=== PATIENT | female | born 1990 | race Caucasian/White ===

== ENCOUNTER 2019-01-25 12:50 | Outpatient (REF) | payer MEDICAID, SELFPAY ==
[2019-01-27 11:19] LABS: HIV-1/2 Ag & Ab Screen Negative (NEGAT)
[2019-01-27 11:25] LABS: Syphilis Serology (RPR) Negative (Negative)
[2019-01-27 15:22] LABS: Chlamydia Result Negative; GC Result Negative; Specimen Description CERVIX
== END 2019-01-25 13:10 ==
LOC: NCHCN 12:50
PROVIDERS: PCP Nurse Practitioner Family; Visit Provider Registered Nurse
DX: Z11.3 Encounter for screening for infections with a predominantly sexual mode of transmission (principal); Z11.4 Encounter for screening for human immunodeficiency virus [HIV]
CPT/HCPCS: 87389; 87491; 87591; 86592

== ENCOUNTER 2019-04-17 17:34 | Emergency (ER) | payer MEDICAID, SELFPAY ==
[2019-04-17 17:37] VITALS: BP 119/77; PULSE 72; RESP 16; TEMP 36.7; O2SAT 98
--- NOTE | 2019-04-17 17:50 | ED.GENADUL_ITS ---
Discharge Plan Disposition Patient Disposition: HOME Condition: Improving Discharge Details Chief Complaint: EarProblem Clinical Impression: Otitis media, Otitis externa Primary Care Provider: Kaleigh Jamil ED Provider: Yusuf Villeda Home Meds and New Rx's Prescriptions: New amoxicillin-pot clavulanate 875-125 mg tablet 1 tab PO BID 10 Days Qty: 20 RF: 0 Cortisporin-TC 3.3-3-10-0.5 mg/mL drops,suspension 4 drp OT TID Qty: 10 RF: 0 Continued Sinus Congestion and Pain 5-325 mg Tablet PO RF: 0 Discharge Instructions Instructions: Otitis Externa (ED), Otitis Media (ED) Additional Instructions: May use Tylenol and/or ibuprofen as needed for pain. I recommend you take once daily rzuh-gbt-lpoxnmq probiotic or live culture yogurt while taking antibiotics. Please follow-up with [facility] if not improving in 3 to 5 days time. Return to the emergency department for any acute concerns. Medical Decision Making 29-year-old female presents with day 2 of left greater than right ear pain with some drainage this morning. The right ear is fairly unremarkable. Left manic membrane is distended and erythematous and there is cobblestoning and mucopurulent debris present in the left ear canal. Does seem that she has both a acute otitis media as well as otitis externa. She does not tolerate ciprofloxacin and therefore will order Cortisporin otic as well as a course of Augmentin. She may follow-[facility] with [facility] for recheck. She is stable for discharge at this time. HPI General Mode of arrival: ambulatory . Date/Time Provider Initiated Documentation: 04/17/19 17:39 . Limitations to Documentation: no limitations . Information obtained by: patient . History of Present Illness 29 year old F presents to the emergency department with the chief complaint of Left greater than right ear pain, described as moderate, Quality is described as constant, and is localized to the head and left. Patient reports no radiation. Patient started experiencing this day(s) and it has been c onstant. No relieving factors improve symptom(s), No exacerbating factors reported . Patient notes denies cough. Patient did receive the following treatments prior to arrival, none Related Data Home Medications Medication Instructions Recorded Confirmed Sinus Congestion and Pain tab PO 04/17/19 amoxicillin-pot clavulanate 1 tab PO BID 10 Days #20 tab 04/17/19 ygxupgle-fnvzka-VA-thonzonium 4 drp OT TID #10 ml 04/17/19 [Cortisporin-TC] Previous Rx's Medication Instructions Recorded amoxicillin-pot clavulanate 1 tab PO BID 10 Days #20 tab 04/17/19 eqreayuv-ztqsmq-BW-thonzonium 4 drp OT TID #10 ml 04/17/19 [Cortisporin-TC] Allergies Allergy/AdvReac Type Severity Reaction Status Date / Time ciprofloxacin [From Cipro] AdvReac Intermediate liver Unverified 04/17/19 17:41 problems/jaundice General Stated Complaint: EarProblem HEATH: 4 Review of Systems Narrative: 6 systems reviewed and otherwise negative [facility] Medical History Chronic urinary tract infection Vesicoureteric reflux Surgical History (Updated 02/26/19 @ 09:17 by Cat Jung LPN) Ureteroneocystostomy Social History Smoking/Tobacco Use Status: Never Drug use: Never Exam Narrative Exam Narrative: GEN: awake, alert, oriented 3. Pleasant, well groomed, interactive. HEAD: Normocephalic, atraumatic ENT: Mucous membranes moist, oropharynx unremarkable, right tympanic membrane fluid filled but nondistended. Left tympanic membrane is erythematous and distended. There is cobblestoning and mucopurulent debris in the left external ear canal. Right external ear exam unremarkable EYES: PERRL, EOMI NECK: Full ROM, no ANNEL, no menigismus EXT: Full ROM, no edema, no rash Neuro: Grossly normal neurologic exam, conversant, interactive. Psych: Speech fluent, thoughts congruent, affect normal Course Vital Signs Vital signs: Vital Signs Temperature 36.7 C 04/17/19 17:37 Pulse 72 04/17/19 17:37 Respiratory Rate 16 04/17/19 17:37 Blood Pressure 119/77 04/17/19 17:37 Pulse Oximetry 98 04/17/19 17:37 Temperature 36.7 C 04/17/19 17:37 Temperature Source Temporal Artery Scan 04/17/19 17:37 Pulse 72 04/17/19 17:37 Respiratory Rate 16 04/17/19 17:37 Respiratory Effort 04/17/19 17:42 Blood Pressure 119/77 04/17/19 17:37 Blood Pressure Position Sitting 04/17/19 17:37 Pulse Oximetry 98 04/17/19 17:37 Oxygen Delivery Method Room Air 04/17/19 17:37 Oxygen Flow Rate 0 04/17/19 17:37 Pain Level 4 04/17/19 17:43
[2019-04-17] MEDS: Cortisporin OTIC SUSP 10 ML BTL AS (17:53)
[2019-04-17] MEDS: Amoxicillin 875/Clav. 125 TAB PO (17:53)
== END 2019-04-17 18:10 | disposition home or self-care (01) ==
PROVIDERS: Emergency Provider Emergency Medicine; PCP Nurse Practitioner Family
DX: H60.91 Unspecified otitis externa, right ear (principal); H66.91 Otitis media, unspecified, right ear
CPT/HCPCS: 99283

== ENCOUNTER 2019-05-20 22:00 | Outpatient (REF) | payer MEDICAID, SELFPAY | END 2019-05-20 22:20 | LOC: NCHCN 22:00 | PROVIDERS: PCP Nurse Practitioner Family; Visit Provider Family Medicine | DX: R30.9 Painful micturition, unspecified (principal) | CPT/HCPCS: 87077; 87086; 87186 ==

== ENCOUNTER 2020-02-26 23:20 | Emergency (ER) | payer MEDICAID, SELFPAY ==
[2020-02-26 23:28] VITALS: BP 118/71; PULSE 91; RESP 20; TEMP 36.6; O2SAT 96
--- NOTE | 2020-02-26 23:50 | ED.GENADUL_ITS ---
Discharge Plan Disposition Patient Disposition: HOME Condition: Stable Discharge Details Clinical Impression: UTI (urinary tract infection), Nausea & vomiting Primary Care Provider: Kaleigh Jamil ED Provider: Eliseo Miner Home Meds and New Rx's Prescriptions: New ondansetron HCl [Zofran] 4 mg tablet 4 mg PO Q8H PRNQty: 10 RF: 0 sulfamethoxazole-trimethoprim [Bactrim DS] 800-160 mg tablet 1 tab PO BID Qty: 14 RF: 0 Discharge Instructions Instructions: Acute Nausea and Vomiting (ED), Urinary Tract Infection in Women (ED) Additional Instructions: Zofran and Bactrim as directed. Plenty of fluids to avoid dehydration. Atga-pch-uwnufve Tylenol and/or Motrin for symptomatic control. Please watch for new or worsening symptoms and return to the ER for any concerns. Please contact her primary care provider on Friday for prompt outpatient reevaluation. Medical Decision Making 30-year-old female with urinary reflux, chronic UTIs. She presents believing that she has a urinary tract infection. Reports frequency, nausea and vomiting. She denies any fever, or abdominal pain. She appears well, nontoxic. She does report some mild aching back pain but she has no CVA tenderness, no back discomfort to palpation, no clinical signs of pyelonephritis. Heart rate in the 80s, blood pressure 118/71. She is afebrile. POC negative Options at this time. She would prefer to avoid any IV if at all possible. We discussed IV Zofran, normal saline, CBC and CMP. She would prefer obtaining a urinalysis and trialing Zofran ODT. If she has a urinary tract infection and can tolerate oral intake she prefer to be discharged without a larger work-up. She appears well, nontoxic and I believe this to be a reasonable plan. Zofran given Urinalysis is positive for nitrates, moderate bacteria. 0-2 white cells and rare epithelial cells. Culture pending. Discussed results with patient. In a female who reports this is similar presentation to her previous urinary tract infections, urinalysis positive nitrates and moderate bacteria I believe treating for urinary tract infection is reasonable. Again we discussed establishing IV, IV hydration and laboratory values. Patient declines and would prefer to trial oral antibiotics and be discharged. Patient given first dose of Bactrim. She will be given a take-home pack of Zofran and I will provide a prescription for Bactrim and Zofran. Patient with no additional questions or concerns and is comfortable discharge. Medical Records Medical records reviewed: Yes I reviewed the patient's medical records. Lab Data Lab results reviewed: Yes I reviewed the patient's lab results. Lab results narrative: 02/26/20 23:40 Urine - Reflex from Ua Urine Culture - Pending Laboratory Tests Range/Units 02/26/20 23:40 Urine Color (Yellow) Yellow Urine Clarity (Clear) Clear Urine pH (5-8) 7.0 Ur Specific Barton (1.005-1.025) 1.025 Urine Protein (Negative) mg/dL Negative Urine Ketones (Negative) mg/dL Negative Urine Blood (Negative) Negative Urine Nitrite (Negative) Positive H Urine Bilirubin (Negative) Negative Urine Urobilinogen (Up TO 0.2) EU/dL 0.2 Ur Leukocyte Esterase (Negative) Negative Urine RBC (0-2) HPF Negative Urine WBC (0-5) HPF 0-2 Ur Epithelial Cells (Negative) HPF Rare Urine Crystals (Negative) HPF Negative Urine Bacteria (Negative) HPF Moderate Urine Casts (Negative) LPF Negative Urine Mucus (Negative) Negative Ur Culture Indicated? Yes Urine Glucose (Negative) mg/dL Negative HPI General Mode of arrival: ambulatory . Date/Time Provider Initiated Documentation: 02/26/20 23:32 . Limitations to Documentation: no limitations . Information obtained by: patient . HPI Narrative: This is a 30-year-old female with history of vesicoureteric reflux and recurrent urinary tract infections. She reports that this feels very similar to previous urinary tract infections. She began with nausea and vomiting today around lunch and increased urination. She denies fever, abdominal pain, dysuria, hematuria, vaginal bleeding or discharge. She reports that her back feels a little achy but no severe pain, this is usual with her urinary tract infections. She has Zofran at home that she would to take but unfortunately she is camping and did not have that prescription. She denies any sick contact, bad food exposure or recent travel. Related Data Home Medications Medication Instructions Recorded Confirmed ondansetron HCl [Zofran] 4 mg PO Q8H PRN #10 tab 02/27/20 sulfamethoxazole-trimethoprim 1 tab PO BID #14 tab 02/27/20 [Bactrim DS] Previous Rx's Medication Instructions Recorded ondansetron HCl [Zofran] 4 mg PO Q8H PRN #10 tab 02/27/20 sulfamethoxazole-trimethoprim 1 tab PO BID #14 tab 02/27/20 [Bactrim DS] Allergies Allergy/AdvReac Type Severity Reaction Status Date / Time ciprofloxacin [From Cipro] AdvReac Intermediate liver Unverified 02/26/20 23:38 problems/jaundice General Stated Complaint: Nausea/Vomit/Diar HEATH: 3 Review of Systems Constitutional Constitutional: Denies fever(s) Cardiovascular Cardiovascular: Denies chest pain and Denies dyspnea Respiratory Respiratory: Denies cough and Denies dyspnea Gastrointestinal Gastrointestinal: Denies abdominal pain, Denies diarrhea, Reports nausea and Reports vomiting Genitourinary Genitourinary: Denies hematuria, Denies dysuria, Denies pelvic pain and Reports urinary urgency Musculoskeletal Musculoskeletal: Reports back pain Integumentary/Breasts Skin/Breast: Denies rash [facility] Medical History (Updated 02/27/20 @ 00:16 by ED Gilman) Chronic urinary tract infection Vesicoureteric reflux Surgical History Ureteroneocystostomy Social History Smoking/Tobacco Use Status: Never Alcohol Intake: former Drug use: Never Substance use type: does not use Do you feel safe at home: Yes Do you feel safe in your relationship?: Yes Exam Const General: cooperative, healthy appearing, comfortable and no acute distress Orientation: alert and awake [facility] Head: normal to inspection, normocephalic and atraumatic Mouth: moist mucous membranes Eyes Conjunctivae: conjunctivae normal Sclera: sclerae normal Neck Neck: normal visual inspection, full ROM, trachea midline and supple Resp Effort & Inspection: normal respiratory effort and able to speak in complete sentences Auscultation: clear to auscultation bilaterally Cardio Rate: regular rate Rhythm: regular rhythm GI Inspection: normal to inspection Palpation: soft, not firm, no guarding, not rigid and nontender Auscultation: normal bowel sounds Back/Spine/Pelvis Back: no CVA tenderness and No back tenderness Skin General skin exam: no rashes or lesions noted Neuro General: patient alert, patient awake, moves all extremities and no focal motor deficits Sensory Exam: no sensory deficits noted Psych Appearance: grossly normal Mental Status: mental status grossly normal Course Vital Signs Vital signs: Vital Signs Temperature 36.6 C 02/26/20 23:28 Pulse 91 H 02/26/20 23:28 Respiratory Rate 02/26/20 23:28 Blood Pressure 118/71 02/26/20 23:28 Pulse Oximetry 96 02/26/20 23:28 Temperature 36.6 C 02/26/20 23:28 Temperature Source Temporal Artery Scan 02/26/20 23:28 Pulse 91 H 02/26/20 23:28 Respiratory Rate 02/26/20 23:28 Respiratory Effort Non-Labored 02/26/20 23:36 Blood Pressure 118/71 02/26/20 23:28 Blood Pressure Position Sitting 02/26/20 23:28 Pulse Oximetry 96 02/26/20 23:28 Oxygen Delivery Method Room Air 02/26/20 23:28 Oxygen Flow Rate 0 02/26/20 23:28 Lab/Test Results Lab/Test Results: POC- Test(urine) Negative
[2020-02-26 23:51] LABS: Bilirubin Negative (Negative); Blood Negative (Negative); Clarity Clear (Clear); Glucose Negative (Negative); Ketones Negative (Negative); Leukocyte Esterase Negative (Negative); Nitrite Positive (Negative); Specific Gravity 1.025 (1.005-1.025); Urobilinogen 0.2 EU/dL (Up TO 0.2)
[2020-02-26 23:56] LABS: Bacteria Moderate HPF (Negative); C & S Indicated? Yes; Casts Negative LPF (Negative); Crystals Negative HPF (Negative); Epithelial Cells Rare HPF (Negative); Mucus Negative (Negative); RBC Negative HPF (0-2); WBC 0-2 HPF (0-5)
[2020-02-26] MEDS: Ondansetron O.D.T. 4 MG TABEF PO (23:59)
[2020-02-27] MEDS: Sulfameth/Trimeth DS TAB 1 TAB PO (00:25)
[2020-02-27] MEDS: Ondansetron O.D.T. 4 MG TABEF, 3 TABS/BTL PO (00:25)
== END 2020-02-27 00:30 | disposition home or self-care (01) ==
PROVIDERS: Emergency Provider Physician Assistant; PCP Nurse Practitioner Family
DX: N39.0 Urinary tract infection, site not specified (principal); B96.20 Unspecified Escherichia coli [E. coli] as the cause of diseases classified elsewhere; R11.2 Nausea with vomiting, unspecified; Z87.440 Personal history of urinary (tract) infections
CPT/HCPCS: 81025; 87077; 99283; 81003; 81015; 87086; 87186

== ENCOUNTER 2020-03-10 09:33 | Outpatient (REF) | payer MEDICAID, SELFPAY | END 2020-03-10 09:53 | LOC: NCHCN 09:33 | PROVIDERS: PCP Nurse Practitioner Family; Visit Provider Registered Nurse | DX: N39.0 Urinary tract infection, site not specified (principal); N10 Acute pyelonephritis; R30.9 Painful micturition, unspecified | CPT/HCPCS: 87086 ==

== ENCOUNTER 2020-03-22 17:02 | Outpatient (REF) | payer MEDICAID, SELFPAY ==
--- NOTE | 2020-03-22 16:00 | PAPFT_PTH ---
PATIENT: Ashley Soni LOC: [facility] U#:[id number] AGE/SX: 30/F ROOM: RE03/22/[address]: Conor Finney MD : 1990 BED: DIS: 03/22/2020 SPEC #: [id number] RECD: 03/22/20 18:01 STATUS: ROBERT REQ #: [id number] GUANAKITO: 03/22/20 16:[address]: Conor Finney DEPT: [facility] Cytology RECD BY: Vernell Chinchilla ENTERED: 03/22/20 18:02 SP TYPE: PAPFT OTHR DR: Kaleigh Jamil Tissues: 1 - CX/ENDOCX FOR PAP SMEARS Procedures: PAP THIN PREP/[facility] Screening HPV DNA PROBE Comments: [id number]
== END 2020-03-22 17:22 ==
LOC: LBN 17:02
PROVIDERS: PCP Nurse Practitioner Family; Visit Provider Obstetrics & Gynecology
DX: Z12.4 Encounter for screening for malignant neoplasm of cervix (principal); Z11.51 Encounter for screening for human papillomavirus (HPV)
CPT/HCPCS: 88142; 87624

== ENCOUNTER 2020-04-05 00:48 | Outpatient (CLI) | payer MEDICAID, SELFPAY ==
--- NOTE | 2020-04-05 08:30 | DI.US_ITS ---
EXAM: US PELVIS TRANSVAGINAL CLINICAL HISTORY: Dyspareunia. Dysmenorrhea, PELVIC PAIN, N94.12, R10.2 TECHNIQUE: Transabdominal and transvaginal imaging was performed using standard protocol. COMPARISON: US PELVIS TRANSVAG from 08/19/2012 FINDINGS: KIDNEYS: Kidneys are symmetric in size. No evidence of renal calculi. No evidence of hydronephrosis. No renal mass or cyst identified. UTERUS: Anteverted. 11.1 x 4.1 x 7.2 cm. Endometrium: 10 millimeters. Calcification at the endometrial myometrial junction. Myometrium: Unremarkable. No fibroids. Cervix: Unremarkable. OVARIES: Right: Cyst or mass: None. Small amount of fluid adjacent to the right ovary. Left: Cyst or mass: None. 1.8 centimeter dominant follicle. DOPPLER: Color: Symmetric and uniform flow to both ovaries. No hyperemia. Duplex: Normal ovarian arterial waveforms visualized. Mildly prominent veins in the right adnexal region. CUL-DE-SAC: Free fluid: None. IMPRESSION: 1. Mildly prominent right gonadal veins. Question pelvic congestion syndrome.. 2. Unremarkable bilateral ovaries. DATA REPOSITORY:
== END 2020-04-05 01:08 ==
PROVIDERS: PCP Nurse Practitioner Family; Visit Provider Obstetrics & Gynecology
DX: R10.2 Pelvic and perineal pain (principal); N94.12 Deep dyspareunia
CPT/HCPCS: 76830; 76856

== ENCOUNTER 2020-05-16 21:52 | Outpatient (REF) | payer MEDICAID, SELFPAY ==
[2020-05-19 13:33] LABS: COVID-19 RT-PCR Result NEGATIVE (Negative)
== END 2020-05-16 22:12 ==
LOC: NCHCN 21:52
PROVIDERS: PCP Nurse Practitioner Family; Visit Provider Registered Nurse
DX: J06.9 Acute upper respiratory infection, unspecified (principal); Z20.828 Contact with and (suspected) exposure to other viral communicable diseases
CPT/HCPCS: U0003

== ENCOUNTER 2021-12-24 15:24 | Outpatient (REF) | payer MEDICAID, SELFPAY ==
--- OUTSIDE RECORDS SUMMARY | 2021-12-24 15:27 | XMS_ITS | Encounter Summary ---
:1990 Author Organization [facility] Address [address] [place] [address] Care Team Providers Name Role Phone Steve Huff MD Primary Care Provider Reason for Visit Reason Onset Date Comments Appointment Related 03/29/2019 Encounter Details Date Type Department Care Team Description 03/29/2019 Telephone [facility] Ashleigh Almeida Ap pointment Related hvac manager - [id number] [place] [id number] Social History Tobacco Use Types Packs/Day Years Used Date Never Assessed Sex Assigned at Date Recorded Not on file documented as of this encounter Miscellaneous Notes Telephone Encounter - Ashleigh Almeida RN - 04/02/2019 1414 EDT left advising pt of 04/08/19 ramirez Gupta 0830 arrival in pt reg 0900 radiology appt May take all meds as usual. documented in this encounter Plan of Treatment Not on filedocumented as of this encounter Visit Diagnoses Not on filedocumented in this encounter Care Teams Banquet Chef Relationship Specialty Start Date End Date Steve Huff MD PCP - General 11/08/11 [place] [id number] documented as of this encounter
--- OUTSIDE RECORDS SUMMARY | 2021-12-24 15:27 | XMS_ITS | Encounter Summary ---
:1990 Author Organization [facility] Address [address] [place] [address] Care Team Providers Name Role Phone Steve Huff MD Primary Care Provider Encounter Details Date Type Department Care Team Description 04/08/2019 Results Only [facility] PRISM MD [phone] [address] [place] [address] (Wo rk) Social History Tobacco Use Types Packs/Day Years Used Date Never Assessed Sex Assigned at Date Recorded Not on file documented as of this encounter Plan of Treatment Not on filedocumented as of this encounter Procedures Procedure Name Priority Date/Time Associated Diagnosis Comme nts MR EXTREMITY 04/08/2019 10:11 Results for this SHOULDER W CONTRAST EDT procedur e are in the results section. [place] GUIDE LOCATION, 04/08/2019 9:35 EDT Re sults for this ASPIRATION, procedure are i n INJECTION, BIOPSY the result s section. documented in this encounter Results MR EXTREMITY SHOULDER W CONTRAST (04/08/2019 10:11 EDT) Anatomical Region Laterality Modality Other Specimen Narrative [facility] - 04/08/2019 10:20 EDT MR EXTREMITY LEFT SHOULDER W CONTRAST ??04/08/2019 10:11 AM Clinical History/Comments: Patient has had ongoing left shoulder pa in for the last 5 years. The shoulder pain has been progressing and s ometimes is unable to move her arm, has tried injections and they w ere unsuccessful and caused burning and pain, she also has tingling into the finger. COMPARISON: None available TECHNIQUE: Routine MRI of the left shoul cara utilizing a 12 cm imaging [id number] following injectio n of a dilute gadolinium solution into the glenohumeral joint spa ce. FINDINGS Successful intra-articular injection of contrast into the glenohumeral joint space. No abnormal pa ssage of contrast into the subacromial, subdeltoid bursal space to indicate a full-thickness rotator cuff tendon tear. Rotator Cuff: Supraspinatus: The supraspinatus tendon shows mild to moderate tendinosis without discrete tear. No mus tammie atrophy or fatty infiltration demonstrated. Infraspinatus: The infraspinatus tendon shows mild to moderate tendinosis without discrete tear. No mus tammie atrophy or fatty infiltration demonstrated. Teres Minor: The teres minor tendon is i ntact. No muscle atrophy or fatty infiltration demonstrated. Subscapularis: The subscapularis tendon shows mild to moderate tendinosis without discrete tear. No mus tammie atrophy or fatty infiltration demonstrated. Long head biceps tendon: The long head b iceps tendon is intact and appears normally positioned within the b icipital groove. Labrum: No glenoid labral tear identifie d. Cartilage: No significant glenohumeral j oint degenerative changes visualized. Bones: No Hill-Sachs impaction fracture seen on the posterolateral aspect of the superior humeral head. No osseous Bankart fracture seen along the anteroinferior glenoid ri m. There is altered bone marrow signal invo lving the visualized scapula, proximal humeral diametaphysis and subcortical region in the humeral head, which show mildly incr eased T2 signal change as well as a mildly decreased T1 marrow sig nal change. The decreased T1 marrow signal change appears brighter th en normal muscle suggesting that the findings in the proper context can represent an exaggerated hematopoietic bone marrow pattern. Howev er, this will need to be correlated clinically. Joint Space: Successful intra-articular injection of contrast into the glenohumeral joint space. Acromioclavicular Joint: ??There is mode rate acromioclavicular joint osteoarthrosis, with mild edematous thic kening of the AC joint capsule as well as reactive edema-like b one marrow signal changes extending from the subchondral region on both sides of the AC joint though particularly involving the distal end of the clavicle. Subacromial-Subdeltoid Bursa: Minimal fi ndings of subacromial, subdeltoid bursitis. IMPRESSION: Left shoulder MRI 1. No glenoid labral tear or significant glenohumeral joint degenerative changes visualized. 2. No osseous Bankart or Hill-Sachs frac ture identified. 3. The supraspinatus, infraspinatus and subscapularis tendons show mild to moderate tendinosis with no disc rete rotator cuff tendon tear visualized. 4. Moderate acromioclavicular joint oste oarthrosis. The acromioclavicular joint may be a pain ge nerator given associated mild edematous thickening of the AC join t capsule as well as reactive edema-like bone marrow signal c hanges extending from the subchondral region, particularly at the distal end of the clavicle.. 5. Minimal findings of subacromial, subd eltoid bursitis. 6. Altered bone marrow signal changes, w hich in the proper context can represent an exaggerated hematopoiet ic bone marrow pattern. This is most often seen in patients who are s mokers or patients with other etiologies resulting in an increas ed demand for hematopoiesis, including patients with anemia. Please c orrelate clinically and with a complete blood count and differential. 7. Additional findings as above. Procedure Note Steve Castro MD - 04/08/2019 MR EXTREMITY LEFT SHOULDER W CONTRAST 10:11 AM Clinical History/Comments: Patient has had ongoing left shoulder pa in for the last 5 years. The shoulder pain has been progressing and eden pritchett is unable to move her arm, has tried injections and they w ere unsuccessful and caused burning and pain, she also has tingling into the finger. COMPARISON: None available TECHNIQUE: Routine MRI of the left shoul cara utilizing a 12 cm imaging [id number] following injectio n of a dilute gadolinium solution into the glenohumeral joint spa ce. FINDINGS Successful intra-articular injection of contrast into the glenohumeral joint space. No abnormal pa ssage of contrast into the subacromial, subdeltoid bursal space to indicate a full-thickness rotator cuff tendon tear. Rotator Cuff: Supraspinatus: The supraspinatus tendon shows mild to moderate tendinosis without discrete tear. No mus tammie atrophy or fatty infiltration demonstrated. Infraspinatus: The infraspinatus tendon shows mild to moderate tendinosis without discrete tear. No mus tammie atrophy or fatty infiltration demonstrated. Teres Minor: The teres minor tendon is i ntact. No muscle atrophy or fatty infiltration demonstrated. Subscapularis: The subscapularis tendon shows mild to moderate tendinosis without discrete tear. No mus tammie atrophy or fatty infiltration demonstrated. Long head biceps tendon: The long head b iceps tendon is intact and appears normally positioned within the b icipital groove. Labrum: No glenoid labral tear identifie d. Cartilage: No significant glenohumeral j oint degenerative changes visualized. Bones: No Hill-Sachs impaction fracture seen on the posterolateral aspect of the superior humeral head. No osseous Bankart fracture seen along the anteroinferior glenoid ri m. There is altered bone marrow signal invo lving the visualized scapula, proximal humeral diametaphysis and subcortical region in the humeral head, which show mildly incr eased T2 signal change as well as a mildly decreased T1 marrow sig nal change. The decreased T1 marrow signal change appears brighter th en normal muscle suggesting that the findings in the proper context can represent an exaggerated hematopoietic bone marrow pattern. Howev er, this will need to be correlated clinically. Joint Space: Successful intra-articular injection of contrast into the glenohumeral joint space. Acromioclavicular Joint: There is modera te acromioclavicular joint osteoarthrosis, with mild edematous thic kening of the AC joint capsule as well as reactive edema-like b one marrow signal changes extending from the subchondral region on both sides of the AC joint though particularly involving the distal end of the clavicle. Subacromial-Subdeltoid Bursa: Minimal fi ndings of subacromial, subdeltoid bursitis. IMPRESSION: Left shoulder MRI 1. No glenoid labral tear or significant glenohumeral joint degenerative changes visualized. 2. No osseous Bankart or Hill-Sachs frac ture identified. 3. The supraspinatus, infraspinatus and subscapularis tendons show mild to moderate tendinosis with no disc rete rotator cuff tendon tear visualized. 4. Moderate acromioclavicular joint oste oarthrosis. The acromioclavicular joint may be a pain ge nerator given associated mild edematous thickening of the AC join t capsule as well as reactive edema-like bone marrow signal c hanges extending from the subchondral region, particularly at the distal end of the clavicle.. 5. Minimal findings of subacromial, subd eltoid bursitis. 6. Altered bone marrow signal changes, w hich in the proper context can represent an exaggerated hematopoiet ic bone marrow pattern. This is most often seen in patients who are s mokers or patients with other etiologies resulting in an increas ed demand for hematopoiesis, including patients with anemia. Please c orrelate clinically and with a complete blood count and differential. 7. Additional findings as above. Performing Organization Address City/State/ZIP Code Phon e Number [facility] GUIDE LOCATION, ASPIRATION, INJECTION, BIOPSY (04/08/2019 9:35 EDT) Anatomical Region Laterality Modality Other Specimen Narrative [facility] - 04/08/2019 9:52 EDT [place] GUIDE LOCATION, ASPIRATION, INJECTION, BIOPSY ??04/08/2019 9:35 AM Clinical History/Comments: Patient has had ongoing left shoulder pa in for the last 5 years. The shoulder pain has been progressing and eden pritchett is unable to move her arm, has tried injections and they w ere unsuccessful and caused burning and pain, she also has tingling into the finger. Procedure: Left shoulder arthrogram under fluorosco pic guidance. Technique: The patient was met in the fluoroscopic suite where after proper identification; the risks, benefits, and alternatives to the procedure were explained in detail to e patient who gave informed oral and written consent to proceed. The patient was subsequently placed in s upine position. A limited examination was performed and the approp riate site of entry on the left shoulder marked. The left shoulder was prepped and draped in the usual sterile fashion. A 1% lidocain e solution was infiltrated at the access site. Subsequently, under fluoroscopic guidanc e, using strict sterile technique, a 22-gauge spinal needle was advanced into the left glenohumeral joint, and fluoroscopic con firmation was obtained by injecting approximately 2 cc of sterile Omnipaque 300 solution within the joint space. Following this, approx. 10 mL of a steri le mix of 1:400 gadolinium mixed with epinephrine, 1% lidocaine, Om nipaque 300, and normal saline solution was injected into the le ft glenohumeral joint space. The needle was removed and the shoulder was passively mobilized. Fluoro spot views were saved during the procedure. The patient tolerated the procedure well . There were no immediate complications. The patient was escorted to the MRI suit e for followup shoulder MRI. Impression: 1. Successful fluoroscopically guided le ft shoulder arthrogram without complications. MR arthrogram to follow. Dr. Castro was present during the injectio n for the arthrogram. Procedure Note Steve Castro MD - 04/08/2019 FL GUIDE LOCATION, ASPIRATION, INJECTION , BIOPSY 04/08/2019 9:35 AM Clinical History/Comments: Patient has had ongoing left shoulder pa in for the last 5 years. The shoulder pain has been progressing and eden pritchett is unable to move her arm, has tried injections and they w ere unsuccessful and caused burning and pain, she also has tingling into the finger. Procedure: Left shoulder arthrogram under fluorosco pic guidance. Technique: The patient was met in the fluoroscopic suite where after proper identification; the risks, benefits, and alternatives to the procedure were explained in detail to [facility] patient who gave informed oral and written consent to proceed. The patient was subsequently placed in s upine position. A limited examination was performed and the approp riate site of entry on the left shoulder marked. The left shoulder was prepped and draped in the usual sterile fashion. A 1% lidocain e solution was infiltrated at the access site. Subsequently, under fluoroscopic guidanc e, using strict sterile technique, a 22-gauge spinal needle was advanced into the left glenohumeral joint, and fluoroscopic con firmation was obtained by injecting approximately 2 cc of sterile Omnipaque 300 solution within the joint space. Following this, approx. 10 mL of a steri le mix of 1:400 gadolinium mixed with epinephrine, 1% lidocaine, Om nipaque 300, and normal saline solution was injected into the le ft glenohumeral joint space. The needle was removed and the shoulder was passively mobilized. Fluoro spot views were saved during the procedure. The patient tolerated the procedure well . There were no immediate complications. The patient was escorted to the MRI suit e for followup shoulder MRI. Impression: 1. Successful fluoroscopically guided le ft shoulder arthrogram without complications. MR arthrogram to follow. Dr. Castro was present during the injectio n for the arthrogram. Performing Organization Address City/State/ZIP Code Phon e Number [facility] documented in this encounter Visit Diagnoses Not on filedocumented in this encounter Care Teams Farm Management Teacher Relationship Specialty Start Date End Date Steve Huff MD PCP - General 11/08/11 [address] [place] [address] documented as of this encounter
--- OUTSIDE RECORDS SUMMARY | 2021-12-24 15:27 | XMS_ITS | Encounter Summary ---
:1990 Author Organization [facility] Address [address] [place] [address] Care Team Providers Name Role Phone Steve Huff MD Primary Care Provider Encounter Details Date Type Department Care Team Description 04/08/2019 Hospital Encounter [facility] - Usha Ramírez Tilley MD [facility] Masha Gupta [address] [place] [id number] [place] [id number] (Wo rk) Social History Tobacco Use Types Packs/Day Years Used Date Never Assessed Sex Assigned at Date Recorded Not on file documented as of this encounter Discharge Diagnoses Diagnosis M25.512 Pain in left shoulder-M25.512[IC D-10-CM] M75.82 Other shoulder lesions, left shou lder-M75.82[ICD-10-CM] M19.012 Primary osteoarthritis, left anne-marie ulder-M19.012[ICD-10-CM] documented in this encounter Discharge Disposition Disposition Code Departure Means Destination Auto Discharge Home documented in this encounter Plan of Treatment Not on filedocumented as of this encounter Visit Diagnoses Not on filedocumented in this encounter Care Teams Strategy Execution Consultant Relationship Specialty Start Date End Date Steve Huff MD PCP - General 11/08/11 [place] [id number] documented as of this encounter
--- OUTSIDE RECORDS SUMMARY | 2021-12-24 15:27 | XMS_ITS | Clinical Summary ---
:1990 Author Organization [facility] Address [address] [place] [address] Care Team Providers Name Role Phone Steve Huff MD Primary Care Provider Social History Tobacco Use Types Packs/Day Years Used Date Never Assessed Sex Assigned at Date Recorded Not on file Plan of Treatment Not on file Care Teams Pre K Teacher Relationship Specialty Start Date End Date Steve Huff MD PCP - General 11/08/11 [place] [phone]
--- OUTSIDE RECORDS SUMMARY | 2021-12-24 15:27 | XMS_ITS | Encounter Summary ---
:1990 Author Organization [facility] Address [address] [place] [address] Care Team Providers Name Role Phone Steve Huff MD Primary Care Provider Encounter Details Date Type Department Care Team Description 11/07/2011 Results Only [facility]- PRISM Carlo Gallegos MD [phone] [place] [address] Social History Tobacco Use Types Packs/Day Years Used Date Never Assessed Sex Assigned at Date Recorded Not on file documented as of this encounter Plan of Treatment Not on filedocumented as of this encounter Procedures Procedure Name Priority Date/Time Associated Diagnosis Comme nts PAP TEST- RESULT Routine 11/07/2011 0:00 EDT Resu lts for this ONLY procedure are i n the results section. documented in this encounter Results PAP TEST- RESULT ONLY (11/07/2011 0:00 EDT) Pathology Report: CYTOPATHOLOGY REPORT [facility] Reports generated via electronic interface contain narcisa ginal data; however they are lacking the format of the original re port. Caution should be taken when reading/interpreting unfo rmatted reports. Name: ? RICHARD SONI ? Accession #: ? [id number] : ? 1990 (Age: 21) ??F ?Collect Date: ? 10/15 Location: ? [facility] ? Receive Date : ? 11/08/2011 Provider: ?CARLO GALLEGOS MD Copy to: ?TERE LOWE TITLE CLOSER ? Specimen/Source: ? Pap Test, Cervix/Endocervix, ThinPrep Imaging System with manual evaluation Last Menstrual Period: ? Hormonal/Contraceptive Status: ? Yes: MIRENA Other: ? Additional clinical information: PAP 06/13/2009 NEG ? SPECIMEN ADEQUACY ? Satisfactory for Evaluation - transformation zone component present GENERAL CATEGORIZATION ? Negative for Intraepithelial Lesion or Malignan cy ? Document reviewed and electronically signed by: ? LOYD Dickson(ASCP) ? Report Date: ??11/12/2011 15:31 End of Report Specimen Performing Organization Address City/State/ZIP Code Phon e Number [facility] [address] [place] [address] [facility] [address] [place] [address] documented in this encounter Visit Diagnoses Not on filedocumented in this encounter Care Teams Telecommunications Administrator Relationship Specialty Start Date End Date Steve Huff MD PCP - General 11/08/11 [place] [phone] documented as of this encounter
--- OUTSIDE RECORDS SUMMARY | 2021-12-24 15:27 | XMS_ITS | Encounter Summary ---
:1990 Author Organization [facility] Address [address] [place] [address] Care Team Providers Name Role Phone Unavailable Primary Care Provider Unavailable Encounter Details Date Type Department Care Team Description 06/13/2009 Orders Only [facility]- PRISM Carlo Cooney MD [phone] [address] [place] [address] Social History Tobacco Use Types Packs/Day Years Used Date Never Assessed Sex Assigned at Date Recorded Not on file documented as of this encounter Plan of Treatment Not on filedocumented as of this encounter Procedures Procedure Name Priority Date/Time Associated Diagnosis Comme nts CYTOPATHOLOGY Routine 06/13/2009 0:00 EST Results for this procedure are i n the results section . documented in this encounter Results CYTOPATHOLOGY (06/13/2009 0:00 EST) Pathology Report: CYTOPATHOLOGY REPORT ? [facility] ? [facility] Reports generated via [employer] interface contain original data; ? however they are lacking the format of the original report. ? Caution should be taken when reading/interpreting unformatted reports. ? Name: ? STONE, RICHARD S ? Accession #: ? [id number] ? : ? 1990 (Age: 19) ??F ?Collect Date: ? 06/13/2009 ? Location: ? [facility] ? Receive Date: ? 06/14/2009 ? Provider: ?CARLO S KE NNY MD ? Copy to: ? Specimen/Source: ? Pap Test, Cervix/Endocervix, ThinPrep Imaging System ? with manual evaluation ? Last Menstrual Period: ? Menstrual/ Status: ? Post ? Other: ? HPVA - HPV testing requested if ASC-US on the current ThinPrep Pap test. ? SPECIMEN ADEQUACY ? Satisfactory for Eval uation ? - transformation zone compon ent present ? GENERAL CATEGORIZATION ? Negative for Intraepi thelial Lesion or Malignancy ? Document reviewed and electr onically signed by: ? Lynan Oscar, [place](ASCP) ? Report Date: ??12/31/ 2009 11:21 ? End of Report ? Specimen Performing Organization Address City/State/ZIP Code Phon e Number [facility] [address] [place] [address] [facility] [address] [place] [address] documented in this encounter Visit Diagnoses Not on filedocumented in this encounter
--- OUTSIDE RECORDS SUMMARY | 2021-12-24 15:27 | XMS_ITS | Encounter Summary ---
:1990 Author Organization [facility] Address [address] [place] [address] Care Team Providers Name Role Phone Steve Huff MD Primary Care Provider Encounter Details Date Type Department Care Team Description 05/17/2020 Lab Requisition [facility] Outr Resulting Lab, Pathology & Laboratory Provider [facility] [address] [place] [address] Social History Tobacco Use Types Packs/Day Years Used Date Never Assessed Sex Assigned at Date Recorded Not on file documented as of this encounter Plan of Treatment Not on filedocumented as of this encounter Procedures Procedure Name Priority Date/Time Associated Comments Diagnosis DO NOT ORDER Today 05/16/2020 14:00 Results for this STANDALONE - BROAD EST procedure are in COVID TEST the results section. COVID-19 TESTING Routine 05/16/2020 14:00 Results for this EST procedure are i n the results section. documented in this encounter Results DO NOT ORDER STANDALONE - BROAD COVID TEST (05/16/2020 14:00 EST) COVID-19 rt-PCR NEGATIVE Negative [facility] Result Comment: LABORATORY 2019-novel Coronavirus (2019 -nCoV) not detected by the qRT-PCR assay. Consider testing for other respiratory viruses or re-collecting for 2019-nCoV testing. Note: Optimum timing for peak viral levels du ring infections caused by 20 -nCoV have not been determined. Collection of multiple specimens from the same patient may be necessary to detect the virus. Limitations Positive results are indicat jaky of active infection with SARS-CoV-2 but do not rule out bacterial infection or co-infection with other viruses. The agent detected may not be the definite cause of diseas e. In addition, detection of viral RNA may not indicate the presence of infectious virus or that SARS-CoV-2 is the causative agent for clinical symptoms. Negative results do not prec lude SARS-CoV-2 infection and should not be used as the sole basis for patient management decisions. Negative results must be combined with clinical observations, patient his tory, and epidemiological in formation. False negative results may also occur if amplification inhibitors are present in the specimen or if inadequate numbers of organisms are present in the specimen. Op timum specimen types and katy ing for peak viral levels during infections caused by SARS-CoV-2 have not been fully determined. Collection of multiple specimens (types and time points) from the same patient may be necessary to detect the virus. The test was validated for u with upper respiratory specimens obtained via nasopharyngeal or oropharyngeal swabs in VTM, UTM, M4, M5, M6, saline, and MTM media. The performance of this test has not be en established for other spe cimens. Specimens collected using other FDA recommended Specimen Collection Materials listed in the FDA COVID-19 [employer] communication (September 09, 2019) are pr ocessed with the caveat that they were not all validated for use with this test and the result must be interpreted in this context. Furthermore, a false negative results may occur if a specimen is improperly collected, transported or handled. If the virus mutates in the RT-PCR target region, SARS-CoV-2 may not be detected or may be detected less predictably. Inhibitors or other types of interference may produce a false negative result. An interference study evaluating the effect of common cold medications was not performed. This test is not FDA-cleared but its performance characteristics were established by our CLIA-certified, CAP-accredited, high complexity laboratory in accordance with CLIA regulations, [employer] of [employer] (CAP) guidel arlin (Sep 02, 2019), and FDA guidance (Aug 14, 2019). This test is only for use un cara the Food and Drug Administration's Emergency Use Authorization. Specimen Swab - Entire nasopharynx (body structur e) Performing Organization Address City/State/ZIP Code Phon e Number [facility] [place], [place] COVID-19 TESTING (05/16/2020 14:00 EST) COVID-19 rt-PCR NEGATIVE Negative [facility] Result Comment: LABORATORY 2019-novel Coronavirus (2019 -nCoV) not detected by the qRT-PCR assay. Consider testing for other respiratory viruses or re-collecting for 2019-nCoV testing. Note: Optimum timing for peak viral levels du ring infections caused by 20 19-nCoV have not been determined. Collection of multiple specimens from the same patient may be necessary to detect the virus. Limitations Positive results are indicat jaky of active infection with SARS-CoV-2 but do not rule out bacterial infection or co-infection with other viruses. The agent detected may not be the definite cause of diseas e. In addition, detection of viral RNA may not indicate the presence of infectious virus or that SARS-CoV-2 is the causative agent for clinical symptoms. Negative results do not prec lude SARS-CoV-2 infection and should not be used as the sole basis for patient management decisions. Negative results must be combined with clinical observations, patient his tory, and epidemiological in formation. False negative results may also occur if amplification inhibitors are present in the specimen or if inadequate numbers of organisms are present in the specimen. Op timum specimen types and katy ing for peak viral levels during infections caused by SARS-CoV-2 have not been fully determined. Collection of multiple specimens (types and time points) from the same patient may be necessary to detect the virus. The test was validated for u with upper respiratory specimens obtained via nasopharyngeal or oropharyngeal swabs in VTM, UTM, M4, M5, M6, saline, and MTM media. The performance of this test has not be en established for other spe cimens. Specimens collected using other FDA recommended Specimen Collection Materials listed in the FDA COVID-19 [employer] communication (September 09, 2019) are pr ocessed with the caveat that they were not all validated for use with this test and the result must be interpreted in this context. Furthermore, a false negative results may occur if a specimen is improperly collected, transported or handled. If the virus mutates in the RT-PCR target region, SARS-CoV-2 may not be detected or may be detected less predictably. Inhibitors or other types of interference may produce a false negative result. An interference study evaluating the effect of common cold medications was not performed. This test is not FDA-cleared but its performance characteristics were established by our CLIA-certified, CAP-accredited, high complexity laboratory in accordance with CLIA regulations, College of [employer] an Pathologists (CAP) guidel arlin (Sep 02, 2019), and FDA guidance (Aug 14, 2019). This test is only for use un cara the Food and Drug Administration's Emergency Use Authorization. Performing Lab [facility] LABORATORY SERVICES Specimen Swab Performing Organization Address City/State/ZIP Code Phon e Number [facility] [address] [place] [address] SERVICES [facility] [place], [place] documented in this encounter Visit Diagnoses Not on filedocumented in this encounter Care Teams Installer Inspector Final Relationship Specialty Start Date End Date Steve Huff MD PCP - General 11/08/[address] [place] [address] documented as of this encounter
--- OUTSIDE RECORDS SUMMARY | 2021-12-24 15:27 | XMS_ITS | Encounter Summary ---
:1990 Author Organization [facility] Address [address] [place] [address] Care Team Providers Name Role Phone Steve Huff MD Primary Care Provider Encounter Details Date Type Department Care Team Description 03/23/2020 Lab Requisition [facility] Conor Finney MD Encounter for other Pathology & [address] [place] [address] general examination Laboratory [facility] [id number] [address] [facility] [phone] [place] [address] (Work) [phone] Social History Tobacco Use Types Packs/Day Years Used Date Never Assessed Sex Assigned at Date Recorded Not on file documented as of this encounter Plan of Treatment Not on filedocumented as of this encounter Procedures Procedure Name Priority Date/Time Associated Comments Diagnosis PAP TEST Today 03/22/2020 16:00 Encounter for other Resu lts for this EDT general examination procedur e are in the results section. HUMAN PAPILLOMAVIRUS Today 03/22/2020 16:00 Encounter for ot her Results for this (HPV) DETECTION-HIGH EDT general examination procedure are in RISK TYPES the results section. documented in this encounter Results HUMAN PAPILLOMAVIRUS (HPV) DETECTION-HIGH RISK TYPES (03/22/2020 16:00 EDT) Human Papillomavirus NegativeComment: No Negative [facility] (HPV) Detection-High E6 or E7 mRNA is CENTER LABORATOR Y Types detected from HPV SERVICES types 16,18,31,33,35,39,45 ,51,52,56,58,59,66, and 68 by senior regulatory affairs specialist mediated amplification. Specimen Pap Test - Cervix and/or Endocervix Performing Organization Address City/State/ZIP Code Phon e Number [facility] [address] [place] [address] SERVICES PAP TEST (03/22/2020 16:00 EDT) Specimens A. Cervix and/or UV MEDICAL Endocervix , ThinPrep CENTER Imaging System with LABORATORY Manual Evaluation SERVICES Specimen Adequacy Satisfactory for [facility] Evaluation - CENTER transformation zone LABORATORY component present SERVICES General Negative for [facility] Categorization intraepithelial CENTER lesion or malignancy LABORATORY SERVICES Descriptive Reactive cellular [facility] Diagnosis changes associated CENTER with inflammation LABORATORY present (includes SERVICES repair). Attestation By the signature below, the attending physician certifies that they have personally conducted a gross and/or microscopic [facility] Electronically examination of the described specimens and rendered or confirmed the above diagnosis. CENTER signed by GABRIELA Mckee MD on SERVICES 04/04/2020 at 1 514 Clinical History See below [facility] SERVICES HPV The result for the Human Pap illomavirus (HPV) Detection-High Risk Types is Negative. No E6 or E7 mRNA is detected from HPV types 16,18,31,33,35,39,45,51,52,56,58,59,66, and 68 by senior regulatory affairs specialist mediated [facility] amplification.Testing was pe rformed on specimen [id number] and was resulted on 04/04/2020 1506 EDT by HEMANTH, LAB INSTRUMENT RESULTS IN THE [facility] LABORATORY SERVICES Performing Lab [facility] LAB [facility] SERVICES Scanned Images [facility] SERVICES Specimen Pap Test - Cervix and/or Endocervix Performing Organization Address City/State/ZIP Code Phon e Number [facility] [address] [place] [address] SERVICES documented in this encounter Visit Diagnoses Diagnosis Encounter for other general examination documented in this encounter Care Teams Maintenance Manager Relationship Specialty Start Date End Date Steve Huff MD PCP - General 11/08/11 [address] [place] [address] documented as of this encounter
== END 2021-12-24 15:25 | disposition home or self-care (01) ==
LOC: NCHCN 15:24
PROVIDERS: PCP Nurse Practitioner Family; Visit Provider Nurse Practitioner Family
DX: N39.0 Urinary tract infection, site not specified (principal)
CPT/HCPCS: 87077; 87086; 87186

== ENCOUNTER 2022-07-22 03:18 | Outpatient (CLI) | payer MEDICAID, SELFPAY ==
[2022-07-22 09:29] LABS: Source Nasal/Nares
[2022-07-22 10:01] LABS: COVID-19 PCR Negative (Negative)
[2022-07-22 10:12] LABS: HGB 14.2 g/dL (11.2-15.7); MCH 31.3 pg (27.0-33.0); MCHC 34.6 % (32.0-36.0); MCV 90 fL (80-95); MPV 10.7 fL (8.0-11.0); Platelet Count 189 10^3/uL (130-400); RBC 4.54 10^6/uL (3.93-5.22); RDW 11.8 % (11.7-14.6); RDW-SD 38.8 fL; WBC 5.89 10^3/uL (4.4-10.8)
[2022-07-22 10:17] LABS: Anion Gap 8.3 mmol/L (3-11); BUN 13 mg/dL (7-18); CO2 28.7 mmol/L (21.0-32.0); CREATININE 0.7 mg/dL (0.55-1.02); Calcium 9.2 mg/dL (8.5-10.1); Chloride 103 mmol/L (98-107); Estimated GFR 117.04 (mL/min/1.73m2); Glucose 93 mg/dL (74-106); Potassium 4.2 mmol/L (3.5-5.1); Sodium 140 mmol/L (136-145)
[2022-07-22 10:42] LABS: HCG Qual (Serum) Negative
== END 2022-07-22 03:19 | disposition home or self-care (01) ==
LOC: LBO 03:18
PROVIDERS: PCP Registered Nurse; Visit Provider Obstetrics & Gynecology Gynecology
DX: Z01.818 Encounter for other preprocedural examination (principal); Z20.822 Contact with and (suspected) exposure to COVID-19
CPT/HCPCS: 36415; 80048; 85027; 86850; 86900; 86901; 87635; 84703

== ENCOUNTER 2022-07-24 10:40 | Observation (INO) | payer MEDICAID, SELFPAY ==
[2022-07-24] VITALS (23 sets, daily range): BP systolic 74–115; BP diastolic 36–74; PULSE 63–85; RESP 11–18; TEMP 36.4–36.9; O2SAT 95–100; BMI 25.8
[2022-07-24 06:27] LABS: Source Nasal/Nares
--- NOTE | 2022-07-24 06:43 | ANES.PREOP_ITS ---
General Info Date of Service Date Performed: 07/24/22 Height: 5 ft 4 in Weight: 68.266 kg Body Mass Index (BMI): 25.8 Surgical Procedure: Operation Date: 07/24/22 08:40 Proposed Procedure Side Surgeon p Hysterectomy Vaginal Laparoscopic Assist w/Cystoscopy Aziza Alvarez MD Meds Allergies and Home Medications Allergies Allergy/AdvReac Type Severity Reaction Status Date / Time ciprofloxacin [From Cipro] AdvReac Intermediate liver Unverified 07/24/22 06:07 problems/jaundice Home Medication Medication Instructions Recorded ondansetron HCl 4 mg tablet 4 mg PO Q8H PRN #10 tabs 02/27/20 (Zofran) cranberry fruit concentrate 500 mg 500 mg PO TID 03/22/20 capsule multivitamin 1 tab PO DAILY 03/22/20 levonorgestrel 21 mcg/24 hours (8 1 device intrauterine ONCE 05/22/22 yrs) 52 mg intrauterine device (Mirena) hydroxyzine HCl 25 mg tablet 1 tab PO TID PRN 07/23/22 Current Visit Medications: Current Medications Generic Name Dose Route Start Last Admin Trade Name Freq PRN Reason Stop Dose Admin Ringer's Solution 1,000 mls @ 125 mls/hr 07/24/22 06:00 IV 08/22/22 23:59 INFUSION CHOLO Cefazolin Sodium/Dextrose 2 gm in 50 mls @ 100 mls/hr 07/24/22 06:00 Ancef Duplex IVPB 07/24/22 16:00 PREOP CHOLO IV Miscellaneous Supplies 1 each 07/24/22 06:00 Iv Access IV 08/22/22 23:59 DIRECTED CHOLO Sodium Chloride 0 ml 07/24/22 06:00 Normal Saline Flush 10 Ml Syr IV 08/22/22 23:59 PRN PRN Sodium Chloride 0 ml 07/24/22 06:00 Normal Saline 10 Ml Vial IJ 08/22/22 23:59 DIRECTED PRN Sterile Water 0 ml 07/24/22 06:00 Water,Injection,Sterile 10 Ml Vial IJ 08/22/22 23:59 DIRECTED PRN PFSH Active Problems Active Problems: Problem Status Onset Code Encounter for pre-operative examination Z01.818 IUD (intrauterine device) in place Z97.5 Breast tenderness in female N64.4 Decreased libido R68.82 Encounter for insertion of mirena IUD Z30.430 Menorrhagia N92.0 Deep dyspareunia N94.12 Pelvic pain R10.2 H/O bilateral salpingectomy Z90.79 Medical History Medical History Chronic urinary tract infection onset as a child. Reflux surgery at 2yo. Lots of hospitalizations as a child for chronic UTI. Vesicoureteric reflux Surgical History [place] [facility] [place] Smoking/Tobacco Use Status: Never Alcohol Alcohol Intake: former Substance Use Substance use: Never Substance use type: does not use Vital Signs and Lab Results Lab Results Blood Type / Crossmatch: Patient ABO/Rh O Negative 07/22/22 Antibody Screen NEGATIVE 07/22/22 Complete Blood Count: White Blood Count 5.89 10^3/uL (4.4-10.8) 07/22/22 09:50 Red Blood Count 4.54 10^6/uL (3.93-5.22) 07/22/22 09:50 Hemoglobin 14.2 g/dL (11.2-15.7) 07/22/22 09:50 Hematocrit 41.0 % (36.0-46.0) 07/22/22 09:50 Platelet Count 189 10^3/uL (130-400) 07/22/22 09:50 Complete Metabolic Panel: Sodium 140 mmol/L (136-145) 07/22/22 09:50 Potassium 4.2 mmol/L (3.5-5.1) 07/22/22 09:50 Chloride 103 mmol/L (98-107) 07/22/22 09:50 Carbon Dioxide 28.7 mmol/L (21.0-32.0) 07/22/22 09:50 BUN 13 mg/dL (7-18) 07/22/22 09:50 Creatinine 0.7 mg/dL (0.55-1.02) 07/22/22 09:50 Est GFR (CKD-EPI 2020) 117.04 (mL/min/1.73m2) 07/22/22 09:50 Calcium 9.2 mg/dL (8.5-10.1) 07/22/22 09:50 Glucose 93 mg/dL (74-106) 07/22/22 09:50 Liver Function Panel: No Data to Display Coagulation Panel: No Data to Display Cardiac Panel: No Data to Display Arterial Blood Gas: No Data to Display Venous Blood Gas: No Data to Display Pancreas Panel: No Data to Display Thyroid Panel: No Data to Display Infectious Disease: Coronavirus (COVID-19)(PCR) Negative (Negative) 07/22/22 09:10 Coronavirus 2019 Source Nasal/Nares 07/24/22 06:20 Blood Cultures: No Data to Display Toxicology Panel: No Data to Display Panel: Serum HCG, Qualitative Negative 07/22/22 09:50 Anesthesia Assessment and Plan Anesthesia History Personal History: No History of Anesthesia Complications Family History: No Family History of Anesthesia Complications Exercise Tolerance Exercise Tolerance: Metabolic Equivalents>4 Pertinent Negatives Pertinent Negatives: No Symptoms of GERD, No Major Cardiovascular Symptoms or Complaints, No Major Pulmonary Symptoms or Complaints and No History of CVA/TIA Cardiac & Pulmonary Exam Cardiac Exam: Normal S1/S2 Heart Sounds Pulmonary Exam: Clear Bilateral Breath Sounds Implantable Cardiac Device Does patient have a Pacemaker or an ICD?: No Airway Exam Known Difficult Airway: No Mallampati Class: 2 Mouth Opening: Normal (> 3cm) Thyromental Distance: Greater than 3 cm Neck Range of Motion: Full ROM Neck Circumference: Normal Teeth Condition: Loose or Chipped Airway Comments: Chipped right front upper ASA Classification ASA Score: ASA 2 Emergency Case?: No NPO Status NPO Status: NPO Clears >2 hours, Solids >8 hours Status Status: Not Per Patient and Negative HCG Anesthesia Plan Resuscitation Status: Full Code Anesthesia Technique: General Anesthesia Airway Planned: Endotracheal Tube Monitors Used: Standard Monitors
[2022-07-24] MEDS: Lactated Ringers 1,000 ML 125 ML IV ×2 (06:53→10:58)
[2022-07-24 07:00] LABS: COVID-19 PCR Negative (Negative)
[2022-07-24] MEDS: ceFAZolin 2 GM/50 ML BAG IVPB (07:50)
[2022-07-24] MEDS: Bupivacaine 0.25% Pres-Free 30 ML VIAL (09:05)
[2022-07-24] MEDS: Lidocaine 1% Pres-Free W/EPI 1/200,000 10 ML VIAL (09:05)
--- NOTE | 2022-07-24 09:51 | UTER_PTH ---
PATIENT: Ashley Soni LOC: OBS U#:[id number] AGE/SX: 32/F ROOM: OBS.306 RE07/24/[address]: Aziza Alvarez : 1990 BED: A DIS: 07/25/2022 SPEC #: [id number] RECD: 07/24/22 12:45 STATUS: ROBERT REQ #: [id number] GUANAKITO: 07/24/22 09:[address]: Aziza Alvarez DEPT: Surgical Specimen RECD BY: Vernell Chinchilla ENTERED: 07/24/22 12:46 SP TYPE: UTER OTHR DR: Josiah Hamlin Tissues: 1 - UTERUS W OR W/O OVARIES(NOT TUMOR/PROLAPSE) Procedures: GROSS AND MICRO LEVEL 5 Comments: [id number]
[2022-07-24] MEDS: ePHEDrine 25 MG/5 ML Syringe IVP (11:26)
[2022-07-24] MEDS: HYDROmorphone 2 MG/ML SYR IVP (11:35)
[2022-07-24] MEDS: Normal Saline 10 ML VIAL IJ (11:37)
--- NOTE | 2022-07-24 11:57 | W.ANESPOSTOP ---
Postoperative Evaluation Date, Time and Location Date Performed: 07/24/22 Time Performed: 11:57 Patient Location: PACU Vital Signs Most Recent Imported Vital Signs: Most Recent Vital Signs Temp Pulse Resp BP Pulse Ox 36.9 C 79 13 115/74 100 07/24/22 11:25 07/24/22 11:55 07/24/22 11:55 07/24/22 11:55 07/24/22 11:55 Pain Score Most Recent Pain Score: Most Recent Pain Score Pain Level 4 07/24/22 11:55 Assessment Mental Status: Awake (Alert & Oriented to Patient Baseline) Airway and Respiratory Function: Patent airway with normal (patient baseline) respiratory exam Cardiovascular Function: Hemodynamically Stable Hydration Status: Adequately Hydrated Nausea & Vomiting: No Nausea or Vomiting Pain: Pain is tolerable per patient Peripheral Nerve Block: Patient did not receive a nerve block Postoperative Comments:: intrathecal narcotics
[2022-07-24] MEDS: Acetaminophen 500 MG TAB PO (14:06)
[2022-07-24] MEDS: Ondansetron 4 MG/2 ML VIAL IVP ×2 (15:01→20:57)
[2022-07-24] MEDS: oxyCODONE 5 mg/Acetaminophen 325 mg TAB PO ×2 (15:05→19:25)
[2022-07-24] MEDS: Ketorolac 15 MG/ML VIAL IVP (16:11)
--- NOTE | 2022-07-24 17:55 | ROE_ITS ---
Date of service: 07/24/22 Time of Service: 17:55 Operative Note Operative Note DATE OF PROCEDURE: 07/24/22 PRE-OP DIAGNOSIS: Dyspareunia, pelvic pain, dysmenorrhea. PROCEDURE: Laparoscopic assisted vaginal hysterectomy with bilateral salpingectomy, bladder cystoscopy, Mirena IUD removal. SURGEON: Aziza Alvarez ASSISTING SURGEON: Cat Johns Refer to Anesthesia Record ESTIMATED BLOOD LOSS: 400 PATHOLOGY: other (Uterus cervix fallopian tubes to pathology) COMPLICATIONS: None Patient was transported to: PACU Patient's condition: stable Indications: Pt is a 32yo female with worsening dyspareunia and pelvic pain not relieved with medical management. Imaging studies unremarkable? Findings: Normal uterus previous tubal sterilization noted. Normal adnexa. Normal upper abdomen Procedure Description: Patient was taken to the operating room where she received spinal anethesia. She was then placed in the dorsal supine position and general endotracheal anesthesia was administered without difficulty. She was positioned in the dorsal lithotomy position in yellowfin stirrups with SCDs in place. After being prepped and draped in the usual sterile fashion a surgical timeout was performed. Herron catheter was placed to gravity drainage. A bivalve speculum was placed and the Mirena IUD removed and the anterior lip of the cervix was grasped with a single-tooth tenaculum. A Radha uterine manipulator was successfully inserted into the uterine cavity, the catheter bulb inflated with 8 cc of normal saline and the device left in place. Attention was then turned to the patient's abdomen. She received 2 g of Ancef prior to skin incision. The umbilical fold was infiltrated with 0.25% Marcaine without epinephrine. A scalpel was then used to make a 12mm vertical skin incision in the umbilical fold. Two penetrating towel clips were used to tent up the skin and through the periumbilical incision and a Veres needle was introduced into the abdomen with carbon dioxide as the distention medium. Intra-abdominal placement was confirmed by a drop in the intra-abdominal pressure. Once a pneumoperitoneum was established a 12 mm Visiport was placed under direct visualization. Patient was then placed in Trendelenburg position. The skin was infiltrated with 1cc of 0.25% Marcaine without epinephrine at two sites 6 cm diagonal from the umbilical incision. Those sites were incised with a scalpel and two 5 mm lower ports were placed under direct visualization. After careful inspection of the pelvis a LigaSure electrocautery device was used to clamp, cauterize and transect the left mesosalpinx to the left isthmus of the left fallopian tube. The left fallopian tube was then delivered through the 12mm umbilical port site. The left proper ovarian ligament was then similarly clamped cauterized and transected from its attachment to the body of the uterus. The left round ligament and broad ligament were then clamped, cauterized and transected to the level of the lower uterine segment. The vesico-uterine peritoneum was incised and the the from the lower uterine segment and mobilized off of the body of the cervix. The pedicles of the uterine round and broad ligaments were inspected and noted to be hemostatic. On the contralateral side the right mesosalpinx, right proper ovarian ligament, round, and right broad ligament were sequentially clamped, cauterized and transected using the Ligasure device to the level of the insertion of the u terine artery. The remaining the vesicouterine peritoneum was incised across the lower uterine segment and the bladder flap created using the Ligasure device and gently counter traction. All pedicles were inspected and noted to be hemostatic. Decision was made to proceed with the vaginal portion of the case. Laparoscopic instruments were removed from the ports , the pneumoperitoneum was reduced, and the was abdomen covered with sterile drape. A weighted vaginal speculum was placed in the vagina and the anterior and posterior lips of the cervix were grasped with Paola clamps. Body of the cervix was circumferentially infiltrated with 1% lidocaine solution of epinephrine. A circumferential incision of the cervical epithelium was made with a Bovie electrocautery. The posterior cul-de-sac was entered sharply and through the this incision a long billed weighted speculum was placed. The left and right uterosacral ligament complexes were identified clamped, transected and suture-ligated and the suture held long. The vesicouterine fascia was identified and the anterior cul-de-sac bluntly sharply. Through this incision a curved right angled retractor was inserted and used to retract the bladder away from the operative field. The remaining right and left broad ligament attatchments were sequentially clamped, cauterized, and transected and the specimen was passed off of the operative field. The vaginal cuff was reapproximated in a vertical fashion with a running suture of 0 Vicryl. Instruments removed from the vagina and attention was again turned to the abdomen where a pneumoperitoneum was reestablished and the pelvis inspected using the laparoscope. The vaginal cuff was intact and was hemostatic as were the round ligament and broad ligament pedicles. The instruments were removed from the port sites, the pneumoperitoneum reduced and the ports removed. The fascia of the periumbilical skin incision was closed with interrupted suture of 0 Vicryl. The skin of all port site incisions were reapproximated with a subcuticular closure of 4-0 Monocryl and and covered with sterile steri-strips and a band-aid. A cystoscopy was performed with both ureteral jets were patent with a brisk eflux of urine noted from each. The bladder was inspected and was normal in appearance. Herron catheter was reinserted to gravity drainage and the patient was placed in the dorsal supine position, awakened, extubated, and transported recovery area in stable condition. All sponge lap needle counts correct x2.
[2022-07-24] MEDS: Normal Saline Flush 10 ML SYR IV ×2 (21:00→22:07)
[2022-07-24] MEDS: Ketorolac 30 MG/ML VIAL IVP (22:06)
[2022-07-25 01:51] VITALS: BP 92/55; PULSE 73; RESP 16; TEMP 36.8
[2022-07-25] MEDS: Acetaminophen 500 MG TAB PO ×2 (02:07→09:44)
[2022-07-25] MEDS: Ketorolac 30 MG/ML VIAL IVP (03:39)
[2022-07-25] MEDS: Ondansetron 4 MG/2 ML VIAL IVP (03:39)
[2022-07-25 07:00] LABS: HCT 31.5 % (36.0-46.0); HGB 11.2 g/dL (11.2-15.7); MCH 31.4 pg (27.0-33.0); MCHC 35.6 % (32.0-36.0); MCV 88 fL (80-95); MPV 10.8 fL (8.0-11.0); Platelet Count 162 10^3/uL (130-400); RBC 3.57 10^6/uL (3.93-5.22); RDW 11.9 % (11.7-14.6); RDW-SD 38.2 fL; WBC 14.48 10^3/uL (4.4-10.8)
[2022-07-25 07:45] VITALS: BP 93/59; PULSE 66; RESP 18; TEMP 36.7; O2SAT 97
[2022-07-25] MEDS: Docusate Sodium 100 MG CAP PO (09:44)
[2022-07-25] MEDS: Ibuprofen 600 MG TAB (09:44)
--- NOTE | 2022-07-25 09:46 | W.PM.DS.N ---
Date of service: 07/25/22 Time of Service: 09:46 DS: Diagnosis Discharge Diagnosis (1) History of laparoscopic-assisted vaginal hysterectomy: Status: Acute Asessment and Plan: Final pathology pending at the time of discharge (2) H/O bilateral salpingectomy: Status: Acute Asessment and Plan: Patient had previously undergone a laparoscopic tubal sterilization (3) Deep dyspareunia: Status: Acute (4) Pelvic pain: Status: Acute Discharge Plan Disposition Patient Disposition: Home Condition: Improving Discharge Details Reason For Visit: [facility] Admit Date/Time: 07/24/22 10:40 Admit Provider: Aziza Alvarez Attending Provider: Aziza Alvarez Primary Care Provider: [facility] Hospital Course Hospital Course: Patient was admitted the morning of surgery and underwent the above-stated procedure. Her postop course was uncomplicated she was discharged home on postop day 1 tolerating a regular diet and voiding without difficulty. Patient was given oxycodone 5 mg along with ondansetron 4 acute postop pain. At the time of discharge she was planning to use both ibuprofen and acetaminophen for pain. I will write a prescription for ondansetron as needed. Patient was counseled regarding avoiding constipation. She has a follow-up appointment in [facility] and was given instructions to call the office in the event of concerns or questions before that time. Home Meds and New Rx's Prescriptions: No Action multivitamin Tablet 1 tab PO DAILY cranberry fruit concentrate 500 mg capsule 500 mg PO TID Rx Instructions: administer with meals Mirena 20 mcg/24 hours (8 yrs) 52 mg intrauterine device 1 device intrauterine ONCE Rx Instructions: as a single dose ondansetron HCl [Zofran] 4 mg tablet 4 mg PO Q8H PRNQty: 10 0RF hydroxyzine HCl 25 mg tablet 1 tab PO TID PRN Patient Comments: TAKE 1 TABLET BY MOUTH THREE TIMES DAILY NEEDED Discharge Instructions Additional Instructions: Avoid you constipation. May use over the counter Colace 100 mg twice daily in addition to increasing fruit and vegetables in your diet. Limit your activities. No driving for 2 weeks. You may remove the Band-Aids over your incisions in 24 hours. You may shower and leave the white Steri-Strips in place. Stand Alone Forms: [facility] Post Pharmacy Order Entry Technician SurgeryW/Incision Activity:: Activity as Tolerated Equipment/Supplies:: No Equipment Needed Diet:: As Tolerated Discharge Orders Discharge Orders: Discharge Order (Routine); Ordered 07/25/22 Ordered By: Aziza Alvarez DS: Summary Time Spent with Patient providing and/or coordinating discharge services: Less than 30 minutes Status at Discharge Functional status at discharge: independent ambulation Overall status at discharge: patient is progressing back to baseline Mental Status: mental status grossly normal Speech and Movement: speech and movement normal Mood: congruent mood Affect: normal affect Exam Const General: no acute distress Nutritional Appearance: average body habitus Orientation: alert, awake and oriented x3 Resp Effort & Inspection: normal respiratory effort Auscultation: clear to auscultation bilaterally Cardio Rate: regular rate Rhythm: regular rhythm GI Inspection: normal to inspection and incision (No ecchymosis visible Band-Aids in place Steri-Strips in place.) Palpation: soft and no hepatosplenomegaly Auscultation: normal bowel sounds Rectal Exam - female: deferred General: deferred Skin General skin exam: no rashes or lesions noted Neuro Cognition: normal cognition Speech: speech normal Gait: normal gait Extrem General: normal to inspection Psych Appearance: grossly normal Mental Status: mental status grossly normal Speech and Movement: speech and movement normal Mood: congruent mood Affect: normal affect Attitude: cooperative Thought Process: normal Thought Content: normal Insight: insight good Judgment: judgment good DS: Data Vitals/I&O Vitals and I&O: Vital Signs Temperature 98.1 F 07/25/22 07:45 Temperature Source Tympanic 07/25/22 07:45 Pulse 66 07/25/22 07:45 Pulse Rhythm Regular 07/25/22 07:45 Respiratory Rate 18 07/25/22 07:45 Respiratory Effort Normal 07/25/22 07:45 Respiratory Depth Normal 07/25/22 07:45 Respiratory Pattern Normal 07/25/22 07:45 Blood Pressure 93/59 L 07/25/22 07:45 Pulse Oximetry 97 07/25/22 07:45 Respiratory End-tidal CO2 37 07/24/22 11:55 Oxygen Delivery Method Room Air 07/25/22 07:45 Oxygen Flow Rate 0 07/25/22 07:45 Pain Level 4 07/25/22 07:45 Comment patient denies feeling light headed or dizzy at this time 07/25/22 07:45 Intake & Output 07/24/22 07/24/22 07/25/22 11:59 23:59 11:59 Intake Total 850 / 1850 1000 / 1850 Output Total 800 / 2975 2175 / 2975 1650 / 1650 Balance 50 / -1125 -1175 / -1125 -1650 / -1650 Weight 150 lb 8.012 oz 155 lb Intake: IV 850 / 1850 1000 / 1850 Output: Urine 400 / 2575 2175 / 2575 1650 / 1650 Estimated Blood Loss 400 / 400 Other: Urine Color Green Pale [place] Urine Appearance Clear Clear Clear Urine Odor None None Comment PACU morgan Emesis Description None Data Completed and Pending Labs on day of discharge: Labs from last 24 hours 07/25/22 06:47 WBC 14.48 H RBC 3.57 L Hgb 11.2 D Hct 31.5 L MCV 88 MCH 31.4 MCHC 35.6 RDW 11.9 Plt Count 162 MPV 10.8 PFSH All Active Problems (Updated 07/25/22 @ 09:47 by Aziza Alvarez MD) History of laparoscopic-assisted vaginal hysterectomy (Acute) IUD (intrauterine device) in place (Acute) Breast tenderness in female (Acute) Decreased libido (Acute) Encounter for insertion of mirena IUD (Acute) Menorrhagia (Acute) Deep dyspareunia (Acute) Pelvic pain (Acute) H/O bilateral salpingectomy (Acute) 2013 Medical History (Updated 07/25/22 @ 09:47 by Aziza Alvarez MD) Chronic urinary tract infection onset as a child. Reflux surgery at 2yo. Lots of hospitalizations as a child for chronic UTI. Vesicoureteric reflux Surgical History (Updated 07/25/22 @ 09:47 by Aziza Alvarez MD) Ureteroneocystostomy [address]. [facility] [place]. Social History (Updated 05/31/22 @ 22:46 by Aziza Alvarez MD) Smoking/Tobacco Use Status: Never Smoking risk assessment performed?: Yes Alcohol Intake: former Drug use: Never Substance use type: does not use Household members: spouse, children and other Details: Coreen Cummins 13, 8. H -Yusuf. Number of Children: 2 Do you feel safe at home: Yes Do you feel safe in your relationship?: Yes Time Spent with Patient Time Spent with Patient: <45 minutes Time was spent: preparing to see the patient(eg.review tests)
== END 2022-07-25 10:44 | disposition home or self-care (01) ==
LOC: OBS 12:55
PROVIDERS: Obstetrics & Gynecology; Admitting Provider Obstetrics & Gynecology Gynecology; PCP Registered Nurse; Visit Provider Obstetrics & Gynecology Gynecology
PROC: 0UT9FZZ Resection of Uterus, Via Natural or Artificial Opening With Percutaneous Endoscopic Assistance (ICD-10-PCS; CPT 58552; principal; 2022-07-24 08:30)
DX: N92.0 Excessive and frequent menstruation with regular cycle (principal); N94.12 Deep dyspareunia; R10.2 Pelvic and perineal pain; Z20.822 Contact with and (suspected) exposure to COVID-19; D25.9 Leiomyoma of uterus, unspecified
CPT/HCPCS: 58552; 52000; 36415; 81025; 85027; 87635; 96361; 96374; 96375; 88307; J0131; J0690; J1100; J1170; J1885; J2250; J2405; J2704; J3010

== ENCOUNTER 2022-10-03 09:13 | Outpatient (REF) | payer MEDICAID, SELFPAY | END 2022-10-03 09:14 | disposition home or self-care (01) | LOC: LBN 09:13 | PROVIDERS: PCP Registered Nurse; Visit Provider Obstetrics & Gynecology Gynecology | DX: R30.0 Dysuria (principal) | CPT/HCPCS: 87077; 87086; 87186 ==

== ENCOUNTER 2023-05-10 18:11 | Emergency (ER) | payer MEDICAID, SELFPAY ==
[2023-05-10] VITALS (24 sets, daily range): BP systolic 104–126; BP diastolic 60–85; PULSE 70–99; RESP 11–33; TEMP 36.6; O2SAT 94–99
--- NOTE | 2023-05-10 19:19 | W.ED.GENAD ---
Discharge Plan Disposition Patient Disposition: Home Condition: Stable Discharge Details Clinical Impression: Urinary tract infection Primary Care Provider: Sakshi Rust ED Provider: Pablo Crow Home Meds and New Rx's Prescriptions: New cefpodoxime 200 mg tablet 200 mg PO BID 10 Days Qty: 20 0RF Rx Instructions: must administer with a meal/food Continued multivitamin Tablet 1 tab PO DAILY cranberry fruit concentrate 500 mg capsule 500 mg PO TID Rx Instructions: administer with meals ibuprofen 600 mg tablet 600 mg PO Q6H PRN (Reason: pain) Qty: 45 1RF ondansetron HCl 4 mg tablet 4 mg PO Q6H Qty: 20 0RF duloxetine 20 mg capsule,delayed release(DR/EC) 20 mg PO DAILY Patient Comments: TAKE 1 CAPSULE BY MOUTH AT BEDTIME ondansetron HCl [Zofran] 4 mg tablet 4 mg PO Q8H PRNQty: 10 0RF hydroxyzine HCl 25 mg tablet 1 tab PO TID PRN Patient Comments: TAKE 1 TABLET BY MOUTH THREE TIMES DAILY NEEDED Discharge Instructions Instructions: Cefpodoxime Proxetil (By mouth), Urinary Tract Infection in Women (ED) Additional Instructions: You were seen in the emergency department for your nausea and vomiting with headache, he states that this is your usual onset of UTI and we did find this in your urine with it being positive for nitrates, your other labs are benign and you showed no signs of sepsis or respiratory compromise, you had a benign abdomen and your vitals are stable. 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 Please return to the ED for any failure to improve of your intractable nausea and vomiting, any inability to tolerate p.o. hydration, any increasing fever despite treatment, headache with neurologic changes. Referrals: Sakshi Rust [Primary Care Provider] - Discharge Data Discharge Date/Time-TO BE ENTERED AT DEPARTURE: 05/10/23 21:22 Medical Decision Making This dictation utilizes [id number] dictation software and may contain unedited grammatical errors. 33 y/o F presents to ED today with a chief complaint of generalized malaise, headache and intractable nausea vomiting worsening throughout the day today, 1 week onset. Onset and characteristics include generalized malaise, no shortness of breath or respiratory symptoms, denies neck stiffness, no high fevers, denies altered mentation. Patients' medical history: Chronic UTIs, history of hysterectomy. Family and social history: noncontributory. Pertinent exam findings / vital signs include benign abdomen, benign cardiopulmonary exam, neuro intact, nontoxic vitals. Differential / pathologies of concern include UTI, gastritis, gastroenteritis, migraine syndrome, cyclical vomiting syndrome, unlikely sepsis. Diagnostic studies of: -CBC, CMP, Lipase, Lactate, Blood Cx's, UA, TSH, Mg++, CRP/ESR. -UA positive for nitrites, suspect UA Interventions of: -1L NS IVF, 1g IV APAP, 15mg IV Toradol, 10mg IV Reglan, 25mg IV benadryl. ED Course: Patient symptomatically improved with migraine cocktail, nitrates in urine, given IV ceftriaxone and sent home with p.o. cefpodoxime by prescription. Counseled on continuing Tylenol and ibuprofen and using her at home Zofran, strict return criteria for acute worsening especially with high fevers, inability to tolerate p.o. intake of nutrition and hydration. Findings not consistent with sepsis, pyelonephritis, no flank pain, not consistent with acute emergent abdominal pathologies, lactate negative, lipase within normal limits, no leukocytosis. Disposition of Urinary Tract Infection. Patient verbalized understanding of the plan and return to ED criteria and engaged in shared decision making. Medical Records Medical records reviewed: Yes I reviewed the patient's medical records. Lab Data Labs: 05/10/23 19:58 Blood Blood Culture - Pending 05/10/23 19:30 Urine - Reflex from Ua Urine Culture - Pending 05/10/23 19:41 Blood Blood Culture - Pending Laboratory Tests Range/Units 05/10/23 05/10/23 05/10/23 19:26 19:30 19:41 WBC (4.4-10.8) 10^3/uL 10.56 RBC (3.93-5.22) 10^6/uL 4.17 Hgb (11.2-15.7) g/dL 13.0 Hct (36.0-46.0) % 37.2 MCV (80-95) fL 89 MCH (27.0-33.0) pg 31.2 MCHC (32.0-36.0) % 34.9 RDW (11.7-14.6) % 12.5 Plt Count (130-400) 10^3/uL 263 MPV (8.0-11.0) fL 10.0 Immature Gran % 0.4 Neutrophils % 84.7 Lymphocytes % 9.5 Monocytes % 4.5 Eosinophils % 0.4 Basophils % 0.5 Nucleated RBC % (0.0-0.3) % 0.0 Absolute Neutrophils (1.2-6.7) 10^3/uL 8.96 H Absolute Lymphocytes (1.2-3.4) 10^3/uL 1.00 L Absolute Monocytes (0.1-0.8) 10^3/uL 0.47 Absolute Eosinophils (0.0-0.7) 10^3/uL 0.04 Absolute Basophils (0.0-0.2) 10^3/uL 0.05 ESR (0-20) mm/hr 2 VBG Lactate (0.6-1.4) mmol/L 0.7 Sodium (136-145) mmol/L 137 Potassium (3.5-5.1) mmol/L 3.8 Chloride (98-107) mmol/L 102 Carbon Dioxide (21.0-32.0) mmol/L 27.6 Anion Gap (3-11) mmol/L 7.4 BUN (7-18) mg/dL 9 Creatinine (0.55-1.02) mg/dL 0.8 Est GFR (CKD-EPI 2020) (mL/min/1.73m2) 99.09 Glucose (74-106) mg/dL 107 H Calcium (8.5-10.1) mg/dL 8.7 Magnesium (1.8-2.4) mg/dL 2.0 Total Bilirubin (0.2-1.0) mg/dL 0.5 AST (15-37) U/L 15 ALT (14-59) U/L 26 Alkaline Phosphatase (46-116) U/L 79 Troponin I Cancelled C-Reactive Protein (0.0-0.3) mg/dL 0.14 Total Protein (6.4-8.2) g/dL 7.3 Albumin (3.4-5.0) g/dL 4.1 Lipase (16-77) U/L 30 TSH (0.36-3.74) uIU/mL 0.44 Urine Color (Yellow) Yellow Urine Clarity (Clear) Cloudy Urine pH (5-8) 8.5 H Ur Specific [place] (1.005-1.025) 1.020 Urine Protein (Negative) mg/dL 30 H Urine Ketones (Negative) mg/dL Negative Urine Blood (Negative) Negative Urine Nitrite (Negative) Positive H Urine Bilirubin (Negative) Negative Urine Urobilinogen (Up to 0.2) mg/dL 0.2 Ur Leukocyte Esterase (Negative) Negative Urine RBC (0-2) HPF Negative Urine WBC (0-5) HPF 5-10 Ur Epithelial Cells (Negative) HPF Rare Urine Crystals (Negative) HPF Moderate Amorphous Urine Bacteria (Negative) HPF Moderate Urine Casts (Negative) LPF Negative Urine Mucus (Negative) Trace Ur Culture Indicated? Yes Urine Glucose (Negative) mg/dL Negative Range/Units 05/10/23 05/10/23 20:36 22:26 WBC (4.4-10.8) 10^3/uL RBC (3.93-5.22) 10^6/uL Hgb (11.2-15.7) g/dL Hct (36.0-46.0) % MCV (80-95) fL MCH (27.0-33.0) pg MCHC (32.0-36.0) % RDW (11.7-14.6) % Plt Count (130-400) 10^3/uL MPV (8.0-11.0) fL Immature Gran % Neutrophils % Lymphocytes % Monocytes % Eosinophils % Basophils % Nucleated RBC % (0.0-0.3) % Absolute Neutrophils (1.2-6.7) 10^3/uL Absolute Lymphocytes (1.2-3.4) 10^3/uL Absolute Monocytes (0.1-0.8) 10^3/uL Absolute Eosinophils (0.0-0.7) 10^3/uL Absolute Basophils (0.0-0.2) 10^3/uL ESR (0-20) mm/hr VBG Lactate (0.6-1.4) mmol/L Sodium (136-145) mmol/L Potassium (3.5-5.1) mmol/L Chloride (98-107) mmol/L Carbon Dioxide (21.0-32.0) mmol/L Anion Gap (3-11) mmol/L BUN (7-18) mg/dL Creatinine (0.55-1.02) mg/dL Est GFR (CKD-EPI 2020) (mL/min/1.73m2) Glucose (74-106) mg/dL Calcium (8.5-10.1) mg/dL Magnesium (1.8-2.4) mg/dL Total Bilirubin (0.2-1.0) mg/dL AST (15-37) U/L ALT (14-59) U/L Alkaline Phosphatase (46-116) U/L Troponin I Cancelled C-Reactive Protein (0.0-0.3) mg/dL Total Protein (6.4-8.2) g/dL Albumin (3.4-5.0) g/dL Lipase (16-77) U/L TSH (0.36-3.74) uIU/mL Urine Color (Yellow) Cancelled Urine Clarity (Clear) Cancelled Urine pH (5-8) Cancelled Ur Specific [place] (1.005-1.025) Cancelled Urine Protein (Negative) mg/dL Cancelled Urine Ketones (Negative) mg/dL Cancelled Urine Blood (Negative) Cancelled Urine Nitrite (Negative) Cancelled Urine Bilirubin (Negative) Cancelled Urine Urobilinogen (Up to 0.2) mg/dL Cancelled Ur Leukocyte Esterase (Negative) Cancelled Urine RBC (0-2) HPF Urine WBC (0-5) HPF Ur Epithelial Cells (Negative) HPF Urine Crystals (Negative) HPF Urine Bacteria (Negative) HPF Urine Casts (Negative) LPF Urine Mucus (Negative) Ur Culture Indicated? Urine Glucose (Negative) mg/dL Cancelled HPI General Date/Time Provider Initiated Documentation: 05/10/23 18:32. HPI Narrative: 33 year-old female presents to ED today by POV/ambulating with her spouse with a chief complaint of general unwell feeling, headache, nausea- states this is her usual onset of UTI- notes history of chronic UTIs since age 2 with onset over one week ago. Patient denies dysuria. Quality described as headache behind her eyes, nausea/vomiting, intractable vomiting today, no radiation to chest pain, abdominal pain, fever, flank pain, neck stiffness, syncope, shortness of breath, chest pain. Severity is described as 8/10. Palliating factors include nothing specific. Provoking factors include nothing specific. Patient not anticoagulated. Related Data Home Medications Medication Instructions Recorded Confirmed ondansetron HCl 4 mg tablet 4 mg PO Q8H PRN #10 tabs 02/27/20 05/10/23 (Zofran) cranberry fruit concentrate 500 mg 500 mg PO TID 03/22/20 05/10/23 capsule multivitamin 1 tab PO DAILY 03/22/20 05/10/23 hydroxyzine HCl 25 mg tablet 1 tab PO TID PRN 07/23/22 05/10/23 ibuprofen 600 mg tablet 600 mg PO Q6H PRN pain #45 tabs 07/25/22 05/10/23 ondansetron HCl 4 mg tablet 4 mg PO Q6H #20 tabs 07/25/22 05/10/23 cefpodoxime 200 mg tablet 200 mg PO BID UTI 10 days #20 tabs 05/10/23 duloxetine 20 mg capsule,delayed 20 mg PO DAILY 05/10/23 05/10/23 release Previous Rx's Medication Instructions Recorded ondansetron HCl 4 mg tablet 4 mg PO Q8H PRN #10 tabs 02/27/20 (Zofran) ibuprofen 600 mg tablet 600 mg PO Q6H PRN pain #45 tabs 07/25/22 ondansetron HCl 4 mg tablet 4 mg PO Q6H #20 tabs 07/25/22 cefpodoxime 200 mg tablet 200 mg PO BID UTI 10 days #20 tabs 05/10/23 Allergies Allergy/AdvReac Type Severity Reaction Status Date / Time ciprofloxacin [From Cipro] AdvReac Intermediate liver Unverified 05/10/23 20:06 problems/jaundice General Stated Complaint: Nausea/Vomit/Diar HEATH: 3 Review of Systems All systems reviewed & are unremarkable except as noted in HPI and below PFSH All Active Problems (Updated 05/10/23 @ 21:11 by ED Brantley) Urinary tract infection (Acute) Dysuria (Acute) Breast tenderness in female (Acute) Decreased libido (Acute) Deep dyspareunia (Acute) Pelvic pain (Acute) Medical History (Updated 05/10/23 @ 21:11 by ED Brantley) Menorrhagia Chronic urinary tract infection onset as a child. Reflux surgery at 2yo. Lots of hospitalizations as a child for chronic UTI. Vesicoureteric reflux Surgical History (Updated 09/30/22 @ 21:22 by Aziza Alvarez MD) History of laparoscopic-assisted vaginal hysterectomy 07/24/22. to treat dyspareunia. H/O bilateral salpingectomy 2014 Ureteroneocystostomy 1991. [facility] [place]. Social History (Updated 05/31/22 @ 22:46 by Aziza Alvarez MD) Smoking/Tobacco Use Status: Never Smoking risk assessment performed?: Yes Alcohol Intake: former Drug use: Never Substance use type: does not use Household members: spouse, children and other Details: Coreen Cummins 13, 8. H -Yusuf. Number of Children: 2 Do you feel safe at home: Yes Do you feel safe in your relationship?: Yes Exam Narrative Exam Narrative: GENERAL APPEARANCE: Well-nourished, non-toxic, awake and alert, atraumatic, no acute distress. SKIN: Warm, pink, dry, intact, without rashes/lesions/ulcerations. HEAD: Normocephalic, atraumatic, normal hair distribution for gender/age. EYES: Pupils PERRLA, EOMs intact without nystagmus, normal conjunctiva, no exudates on lids/lashes. ENT: Nares patent, no circumoral cyanosis, no facial swelling NECK: Supple, trachea midline, painless cervical ROM, no nuchal rigidity. LUNGS/CHEST: Lungs CTA bilaterally- no rhonchi/rales/wheezes diffusely, non-labored respirations, normal A/P diameter, symmetrical expansion, no chest wall deformity HEART (CV/PV): Regular rate and rhythm without murmur, no peripheral edema, no JVD. ABDOMEN: Soft, non-distended, no guarding, no tenderness. MSK: Normal ROM, no swelling/deformity to bilateral UEs or LEs, moving all extremities without weakness, no cyanosis, spine midline without tenderness, normal curvature. NEURO: Mental Status AAOx4 - alert to person, place, time, events No facial droop, no forehead involvement. Motor: No focal weakness - strength 5/5 in bilateral UEs and LEs, proximal and distal, symmetric. Sensory: sensation intact to light touch globally. Gait normal: patient ambulated without ataxia into ED room. PSYCH: euthymic, cooperative, pleasant, appropriate speech Course Vital Signs Vital signs: Vital Signs Temperature 36.6 C 05/10/23 18:17 Pulse 89 05/10/23 18:17 Respiratory Rate 18 05/10/23 18:17 Blood Pressure 126/85 05/10/23 18:17 Pulse Oximetry 99 05/10/23 18:17 Temperature 36.6 C 05/10/23 18:17 Temperature Source Oral 05/10/23 18:17 Pulse 89 05/10/23 18:17 Respiratory Rate 18 05/10/23 18:17 Blood Pressure 126/85 05/10/23 18:17 Blood Pressure Position Sitting 05/10/23 18:17 Pulse Oximetry 99 05/10/23 18:17 Oxygen Delivery Method Room Air 05/10/23 18:17 Oxygen Flow Rate 0 05/10/23 18:17
[2023-05-10 19:40] LABS: Bilirubin Negative (Negative); Blood Negative (Negative); Clarity Cloudy (Clear); Glucose Negative (Negative); Ketones Negative (Negative); Leukocyte Esterase Negative (Negative); Nitrite Positive (Negative); Urobilinogen 0.2 mg/dL (Up to 0.2); pH 8.5 (5-8)
[2023-05-10 19:45] LABS: Bacteria Moderate HPF (Negative); Epithelial Cells Rare HPF (Negative); RBC Negative HPF (0-2)
[2023-05-10 19:46] LABS: C & S Indicated? Yes; Casts Negative LPF (Negative); Crystals Moderate Amorphous HPF (Negative); Mucus Trace (Negative)
[2023-05-10 19:48] LABS: Lactate 0.7 mmol/L (0.6-1.4)
[2023-05-10 19:55] LABS: Abs Immature Grans 0.04 10^3/uL (0.0-0.06); Absolute Basophil Count 0.05 10^3/uL (0.0-0.2); Absolute Eosinophil Count 0.04 10^3/uL (0.0-0.7); Absolute Monocyte Count 0.47 10^3/uL (0.1-0.8); Absolute Neutrophil Count 8.96 10^3/uL (1.2-6.7); Basophils % 0.5; Eosinophils % 0.4; HCT 37.2 % (36.0-46.0); Immature Grans % 0.4; Lymphocytes % 9.5; MCH 31.2 pg (27.0-33.0); MCHC 34.9 % (32.0-36.0); MCV 89 fL (80-95); Monocytes % 4.5; Neutrophils % 84.7; Platelet Count 263 10^3/uL (130-400); RBC 4.17 10^6/uL (3.93-5.22); RDW 12.5 % (11.7-14.6); RDW-SD 40.5 fL; WBC 10.56 10^3/uL (4.4-10.8)
[2023-05-10 19:57] LABS: ESR 2 mm/hr (0-20)
[2023-05-10] MEDS: diphenhydrAMINE 50 MG/ML VIAL 25 MG IVP (20:10)
[2023-05-10] MEDS: Ketorolac 15 MG/ML VIAL IVP (20:10)
[2023-05-10] MEDS: Lactated Ringers 1,000 ML 1000 ML IV (20:11)
[2023-05-10] MEDS: Metoclopramide 10 MG/2 ML VIAL IVP (20:11)
[2023-05-10] MEDS: ACETAMINOPHEN 1,000 MG/100 ML BTL 400 MG IVPB (20:13)
[2023-05-10 20:16] LABS: ALT 26 U/L (14-59); AST 15 U/L (15-37); Albumin 4.1 g/dL (3.4-5.0); Alkaline Phosphatase 79 U/L (46-116); Anion Gap 7.4 mmol/L (3-11); BUN 9 mg/dL (7-18); Bilirubin, Total 0.5 mg/dL (0.2-1.0); CO2 27.6 mmol/L (21.0-32.0); CREATININE 0.8 mg/dL (0.55-1.02); Calcium 8.7 mg/dL (8.5-10.1); Chloride 102 mmol/L (98-107); Estimated GFR 99.09 (mL/min/1.73m2); Glucose 107 mg/dL (74-106); Potassium 3.8 mmol/L (3.5-5.1); Sodium 137 mmol/L (136-145); Total Protein 7.3 g/dL (6.4-8.2)
[2023-05-10 20:17] LABS: C-Reactive Protein 0.14 mg/dL (0.0-0.3); Lipase 30 U/L (16-77); TSH (W/Ref FT4) 0.44 uIU/mL (0.36-3.74)
[2023-05-10] MEDS: cefTRIAXone 2 GM/50 ML BAG IVPB (20:43)
[2023-05-13 10:00] LABS: Lyme Ab w Rflx to Lyme Confirm Negative (Negative)
[2023-05-14 20:19] LABS: Anaplasma phagocytophilum Negative (Negative); B. miyamotoi PCR Negative (Negative); Babesia divergens/MO-1 Negative (Negative); Babesia duncani Negative (Negative); Babesia microti Negative (Negative); Ehrlichia chaffeensis Negative (Negative); Ehrlichia ewingii/canis Negative (Negative); Ehrlichia muris eauclairensis Negative (Negative)
== END 2023-05-10 21:22 | disposition home or self-care (01) ==
PROVIDERS: Emergency Provider Physician Assistant; PCP Family Medicine
DX: N39.0 Urinary tract infection, site not specified (principal); R51.9 Headache, unspecified; R11.2 Nausea with vomiting, unspecified
CPT/HCPCS: 80053; 81025; 83690; 85652; 87040; 87077; 87798; 96361; 96365; 96375; 99283; 81003; 81015; 83605; 83735; 84443; 84484; 85025; 86140; 86618; 87086; 87186; J0131; J1200; J1885; J2765

== ENCOUNTER 2024-10-12 14:17 | Outpatient (REF) | payer MEDICAID, SELFPAY | END 2024-10-12 14:18 | disposition home or self-care (01) | LOC: NCHCN 14:17 | PROVIDERS: PCP Family Medicine; Visit Provider Family Medicine | DX: R35.0 Frequency of micturition (principal) | CPT/HCPCS: 87077; 87086; 87186 ==

== ENCOUNTER 2025-03-09 19:00 | Emergency (ER) | payer MEDICAID, SELFPAY ==
[2025-03-09 19:01] VITALS: BP 132/90; PULSE 92; RESP 18; TEMP 36.2; O2SAT 98
[2025-03-09 19:19] LABS: Glucose Negative (Negative)
[2025-03-09 19:22] LABS: HCG Qual (Urine) Negative
[2025-03-09 19:24] LABS: C & S Indicated? Yes; RBC Negative HPF (0-2); WBC >50 HPF (0-5)
[2025-03-09] MEDS: Lactated Ringers 1,000 ML 1000 ML IV (19:33)
[2025-03-09] MEDS: Ondansetron 4 MG/2 ML VIAL IVP (19:33)
[2025-03-09] MEDS: ACETAMINOPHEN 1,000 MG/100 ML BAG 400 MG IVPB (19:33)
[2025-03-09] MEDS: cefTRIAXone 2 GM/50 ML BAG IVPB (19:40)
[2025-03-09 19:41] LABS: Abs Immature Grans 0.02 10^3/uL (0.0-0.06); HCT 40.7 % (36.0-46.0); HGB 14.1 g/dL (11.2-15.7); Immature Grans % 0.3 %; MCH 30.8 pg (27.0-33.0); MCHC 34.6 % (32.0-36.0); MCV 89 fL (80-95); MPV 10.5 fL (8.0-11.0); Platelet Count 179 10^3/uL (130-400); RBC 4.58 10^6/uL (3.93-5.22); RDW 11.8 % (11.7-14.6); RDW-SD 37.5 fL; WBC 7.73 10^3/uL (4.4-10.8)
[2025-03-09 19:43] VITALS: BP 128/76; PULSE 95; RESP 18; TEMP 36.6; O2SAT 98
[2025-03-09 20:00] LABS: ALT 23 U/L (14-59); AST 14 U/L (15-37); Albumin 3.9 g/dL (3.4-5.0); Alkaline Phosphatase 72 U/L (46-116); Anion Gap 7.5 mmol/L (3-11); BUN 5 mg/dL (7-18); Bilirubin, Total 0.7 mg/dL (0.2-1.0); CO2 27.5 mmol/L (21.0-32.0); Calcium 8.8 mg/dL (8.5-10.1); Chloride 105 mmol/L (98-107); Estimated GFR 114.88 (mL/min/1.73m2); Glucose 114 mg/dL (74-106); Magnesium 1.8 mg/dL (1.8-2.4); Potassium 4.1 mmol/L (3.5-5.1); Sodium 140 mmol/L (136-145); Total Protein 6.9 g/dL (6.4-8.2)
--- NOTE | 2025-03-09 20:05 | W.ED.GENAD ---
Discharge Plan Disposition Patient Disposition: Home Condition: Stable Discharge Details Clinical Impression: Urinary tract infection Primary Care Provider: Sakshi Rust ED Provider: Pablo Crow Home Meds and New Rx's Prescriptions: New cefpodoxime 200 mg tablet 200 mg PO BID 10 Days Qty: 20 0RF Rx Instructions: must administer with a meal/food ondansetron 4 mg tablet,disintegrating 4 mg PO Q8H PRNQty: 30 0RF Continued duloxetine 20 mg capsule,delayed release(DR/EC) 20 mg PO DAILY Patient Comments: TAKE 1 CAPSULE BY MOUTH AT BEDTIME Discharge Instructions Instructions: Cefpodoxime, Ondansetron, Urinary Tract Infection, Adult ED Additional Instructions: You were seen in the emergency department for your urinary tract infection with nausea, your blood work shows that you are well-hydrated and your kidney function is normal, you have no elevation of white blood cells indicating the infections likely isolated to your bladder and urinary tract. I have sent antibiotics called cefpodoxime to [facility] in [place] to treat your UTI, this will also prevent kidney infection. I have sent you nausea medicines to use 3 times per day taking under the tongue 2030 minutes before mealtime. Please use therapeutic dosing of Tylenol (acetamenophen) & Advil (ibuprofen) in an alternating fashion as follows: Take 1000mg of Tylenol every 6 hours without missing doses- that is 4 times per day. Custodial in between the Tylenol dosings, take 400-600mg of Advil also on a 6 hour schedule, that is also 4 times per day. The daily maximum dosing of Tylenol is 4000mg, and the daily maximum dosing of Advil is 2400mg. This is safe to do for weeks. Please note that some common cold medications & prescription pain medications may contain acetamenophen and you need to read OTC drug labels and factor that in to maximum daily dosings. Stay well-hydrated, buy [id number] AZO to help with symptomatic relief of pain in the urethra, this will turn your urine orange. Please return for any severe increase in symptoms despite treatment, any increasing pelvic pain with intractable nausea or vomiting, vaginal bleeding or any other emergent concerns. Referrals: Sakshi Rust [Primary Care Provider, Medicine] Discharge Data Discharge Date/Time-TO BE ENTERED AT DEPARTURE: 03/09/25 20:42 HPI General Date/Time Provider Initiated Documentation: 03/09/25 19:06. HPI Narrative: 35 year-old female presents to ED today by POV/ambulating with a chief complaint of headache and nausea with dysuria- which is her usual presentation when she gets UTIs with onset yesterday. Quality described as burning, constant headache, and some nausea, no radiation to fever, urinary retention, hematuria, new sexual partners, cough, shortness of breath, tachycardia. Severity is described as moderate. Palliating factors include OTC analgesics with little relief. Provoking factors include nothing specific. Patient not anticoagulated. Related Data Home Medications ?Medication ?Instructions ?Recorded ?Confirmed duloxetine 20 mg capsule,delayed 20 mg PO DAILY 05/10/23 03/09/25 release cefpodoxime 200 mg tablet 200 mg PO BID 10 days #20 tabs 03/09/25 ondansetron 4 mg disintegrating 4 mg PO Q8H PRN #30 tabs 03/09/25 tablet Previous Rx's ?Medication ?Instructions ?Recorded cefpodoxime 200 mg tablet 200 mg PO BID 10 days #20 tabs 03/09/25 ondansetron 4 mg disintegrating 4 mg PO Q8H PRN #30 tabs 03/09/25 tablet Allergies Allergy/AdvReac Type Severity Reaction Status Date / Time ciprofloxacin (From Cipro) AdvReac Intermediate liver Unverified 03/09/25 19:05 problems/jaundice General Stated Complaint: Headache HEATH: 3 Review of Systems All systems reviewed & are unremarkable except as noted in HPI and below Exam Narrative Exam Narrative: GENERAL APPEARANCE: Well-nourished, non-toxic, awake and alert, atraumatic, mild acute distress. SKIN: Warm, pink, dry, intact, without rashes/lesions/ulcerations. HEAD: Normocephalic, atraumatic, normal hair distribution for gender/age. EYES: Normal conjunctiva, no exudates on lids/lashes. ENT: Nares patent, no circumoral cyanosis, no facial swelling NECK: Supple, trachea midline, painless cervical ROM. LUNGS/CHEST: Non-labored respirations, normal A/P diameter, symmetrical expansion, no chest wall deformity HEART (CV/PV): No peripheral edema, no JVD. ABDOMEN: Soft, non-distended, no guarding, diffuse lower abdominal tenderness, no CVA tenderness to percussion bilaterally MSK: Normal ROM, no swelling/deformity to bilateral UEs or LEs, moving all extremities without weakness, no cyanosis, spine midline without tenderness, normal curvature. NEURO: Mental Status AAOx4 - alert to person, place, time, events No facial droop, no forehead involvement. Motor: No focal weakness - strength 5/5 in bilateral UEs and LEs, proximal and distal, symmetric. Sensory: sensation intact to light touch globally. Gait normal: patient ambulated without ataxia into ED room. PSYCH: euthymic, cooperative, pleasant, appropriate speech Course Vital Signs Vital signs: Vital Signs Temperature 36.2 C L 03/09/25 19:01 Pulse 92 H 03/09/25 19:01 Respiratory Rate 18 03/09/25 19:01 Blood Pressure 132/90 03/09/25 19:01 Pulse Oximetry 98 03/09/25 19:01 Temperature 36.6 C 03/09/25 19:43 Pulse 95 H 03/09/25 19:43 Respiratory Rate 18 03/09/25 19:43 Blood Pressure 128/76 03/09/25 19:43 Pulse Oximetry 98 03/09/25 19:43 Oxygen Delivery Method Room Air 03/09/25 19:43 Oxygen Flow Rate 0 03/09/25 19:43 Pain Level 8 03/09/25 19:43 Lab/Test Results Lab/Test Results: 03/09/25 19:08 Urine - Reflex from Ua Urine Culture - Pending Laboratory Tests Range/Units 03/09/25 03/09/25 19:08 19:36 WBC (4.4-10.8) 10^3/uL 7.73 RBC (3.93-5.22) 10^6/uL 4.58 Hgb (11.2-15.7) g/dL 14.1 Hct (36.0-46.0) % 40.7 MCV (80-95) fL 89 MCH (27.0-33.0) pg 30.8 MCHC (32.0-36.0) % 34.6 RDW (11.7-14.6) % 11.8 Plt Count (130-400) 10^3/uL 179 MPV (8.0-11.0) fL 10.5 Immature Gran % % 0.3 Neutrophils % % 71.1 Lymphocytes % % 21.9 Monocytes % % 6.0 Eosinophils % % 0.3 Basophils % % 0.4 Nucleated RBC % (0.0-0.3) % 0.0 Absolute Neutrophils (1.2-6.7) 10^3/uL 5.51 Absolute Lymphocytes (1.2-3.4) 10^3/uL 1.69 Absolute Monocytes (0.1-0.8) 10^3/uL 0.46 Absolute Eosinophils (0.0-0.7) 10^3/uL 0.02 Absolute Basophils (0.0-0.2) 10^3/uL 0.03 Urine Color (Yellow) Yellow Urine Clarity (Clear) Clear Urine pH (5-8) 7.0 Ur Specific [place] (1.005-1.025) 1.020 Urine Protein (Neg-Trace) mg/dL Negative Urine Ketones (Negative) mg/dL Trace H Urine Blood (Negative) Negative Urine Nitrite (Negative) Positive H Urine Bilirubin (Negative) Negative Urine Urobilinogen (Up to 0.2) mg/dL 0.2 Ur Leukocyte Esterase (Negative) Trace H Urine RBC (0-2) HPF Negative Urine WBC (0-5) HPF >50 H Ur Epithelial Cells (Negative) HPF Few Urine Crystals (Negative) HPF Negative Urine Bacteria (Negative) HPF Packed Urine Casts (Negative) LPF Negative Urine Mucus (Negative) Negative Ur Culture Indicated? Yes Urine Glucose (Negative) mg/dL Negative Urine HCG, Qual Negative Medical Decision Making This dictation utilizes [id number] dictation software and may contain unedited grammatical errors. 35 year-old female presents to ED today by POV/ambulating with a chief complaint of headache and nausea with dysuria- which she states is her usual presentation when she gets UTIs with onset yesterday. Quality described as burning, constant headache, and some nausea, no radiation to fever, urinary retention, hematuria, new sexual partners, cough, shortness of breath, tachycardia. Severity is described as moderate. Palliating factors include OTC analgesics with little relief. Provoking factors include nothing specific. Patients' medical history: Noncontributory. Family and social history: Noncontributory. Pertinent exam findings / vital signs include diffuse lower abdominal tenderness without peritoneal signs, no CVA tenderness percussion bilaterally, nontoxic and afebrile, benign cardiopulmonary status. Differential / pathologies of concern include urinary tract infection, pyelonephritis less likely, viral syndrome. Diagnostic studies of: -CBC, CMP, magnesium, UA, urine test. - U bHCG negative - CBC unremarkable - CMP unremarkable - Magnesium within normal limits - UA shows greater than 50 WBCs, treating with antibiotics for UTI Interventions of: -2gm IV ceftriaxone, Rx for cefpodoxime. ED Course/Assessment/Plan: 35-year-old female presents with dysuria and headache and nausea, history of UTIs with similar presentations, urine has greater than 50 WBCs, blood work is unremarkable, started on IV ceftriaxone and sent prescription for cefpodoxime recommend [id number] Azo and therapeutic dosing Tylenol and ibuprofen with strict return criteria for any emergent concerns. Findings not consistent with peritoneal abdomen, PID, obstructive uropathy, sepsis. Disposition of Urinary Tract Infection. Patient verbalized understanding of the plan and return to ED criteria and engaged in shared decision making. Medical Records Medical records reviewed: Yes I reviewed the patient's medical records. Lab Data Lab results reviewed: Yes I reviewed the patient's lab results. Labs: 03/09/25 19:08 Urine - Reflex from Ua Urine Culture - Final Escherichia coli Laboratory Tests Range/Units 03/09/25 03/09/25 19:08 19:36 WBC (4.4-10.8) 10^3/uL 7.73 RBC (3.93-5.22) 10^6/uL 4.58 Hgb (11.2-15.7) g/dL 14.1 Hct (36.0-46.0) % 40.7 MCV (80-95) fL 89 MCH (27.0-33.0) pg 30.8 MCHC (32.0-36.0) % 34.6 RDW (11.7-14.6) % 11.8 Plt Count (130-400) 10^3/uL 179 MPV (8.0-11.0) fL 10.5 Immature Gran % % 0.3 Neutrophils % % 71.1 Lymphocytes % % 21.9 Monocytes % % 6.0 Eosinophils % % 0.3 Basophils % % 0.4 Nucleated RBC % (0.0-0.3) % 0.0 Absolute Neutrophils (1.2-6.7) 10^3/uL 5.51 Absolute Lymphocytes (1.2-3.4) 10^3/uL 1.69 Absolute Monocytes (0.1-0.8) 10^3/uL 0.46 Absolute Eosinophils (0.0-0.7) 10^3/uL 0.02 Absolute Basophils (0.0-0.2) 10^3/uL 0.03 Sodium (136-145) mmol/L 140 Potassium (3.5-5.1) mmol/L 4.1 Chloride (98-107) mmol/L 105 Carbon Dioxide (21.0-32.0) mmol/L 27.5 Anion Gap (3-11) mmol/L 7.5 BUN (7-18) mg/dL 5 L Creatinine (0.55-1.02) mg/dL 0.7 Est GFR (CKD-EPI 2020) (mL/min/1.73m2) 114.88 Glucose (74-106) mg/dL 114 H Calcium (8.5-10.1) mg/dL 8.8 Magnesium (1.8-2.4) mg/dL 1.8 Total Bilirubin (0.2-1.0) mg/dL 0.7 AST (15-37) U/L 14 L ALT (14-59) U/L 23 Alkaline Phosphatase (46-116) U/L 72 Total Protein (6.4-8.2) g/dL 6.9 Albumin (3.4-5.0) g/dL 3.9 Urine Color (Yellow) Yellow Urine Clarity (Clear) Clear Urine pH (5-8) 7.0 Ur Specific [place] (1.005-1.025) 1.020 Urine Protein (Neg-Trace) mg/dL Negative Urine Ketones (Negative) mg/dL Trace H Urine Blood (Negative) Negative Urine Nitrite (Negative) Positive H Urine Bilirubin (Negative) Negative Urine Urobilinogen (Up to 0.2) mg/dL 0.2 Ur Leukocyte Esterase (Negative) Trace H Urine RBC (0-2) HPF Negative Urine WBC (0-5) HPF >50 H Ur Epithelial Cells (Negative) HPF Few Urine Crystals (Negative) HPF Negative Urine Bacteria (Negative) HPF Packed Urine Casts (Negative) LPF Negative Urine Mucus (Negative) Negative Ur Culture Indicated? Yes Urine Glucose (Negative) mg/dL Negative Urine HCG, Qual Negative PFSH All Active Problems (Updated 03/09/25 @ 20:10 by ED Brantley) Urinary tract infection (Acute) Dysuria (Acute) Breast tenderness in female (Acute) Decreased libido (Acute) Deep dyspareunia (Acute) Pelvic pain (Acute) Medical History (Updated 03/09/25 @ 20:10 by ED Brantley) Menorrhagia Chronic urinary tract infection onset as a child. Reflux surgery at 2yo. Lots of hospitalizations as a child for chronic UTI. Vesicoureteric reflux Surgical History (Updated 09/30/22 @ 21:22 by Aziza Alvarez MD) History of laparoscopic-assisted vaginal hysterectomy 07/24/22. to treat dyspareunia. H/O bilateral salpingectomy 2014 Ureteroneocystostomy 1991. [facility] [place]. Social History (Updated 05/31/22 @ 22:46 by Aziza Alvarez MD) Smoking/Tobacco Use Status: Never Smoking risk assessment performed?: Yes Alcohol Intake: former Drug use: Never Substance use type: does not use Household members: spouse, children and other Details: Coreen Cummins 12, 8. H Michael. Number of Children: 2 Do you feel safe at home: Yes Do you feel safe in your relationship?: Yes
[2025-03-09 20:41] VITALS: BP 109/71; PULSE 72; RESP 18; O2SAT 99
== END 2025-03-09 20:42 | disposition home or self-care (01) ==
PROVIDERS: Emergency Provider Physician Assistant; PCP Family Medicine
DX: N39.0 Urinary tract infection, site not specified (principal); R11.0 Nausea
CPT/HCPCS: 80053; 87077; 96365; 96375; 99283; 81003; 81015; 81025; 83735; 85025; 87086; 87186; J0131; J0696; J2405